=== PATIENT | male | born 1960 | race Caucasian/White ===

== ENCOUNTER 2016-09-28 22:04 | Emergency (ER) | payer OTHER ==
[~2016-09-28] VITALS: Ht 177.8 cm; Wt 52.0 kg
[~2016-09-28 22:04] MED LIST: ALBU8I INH; PRED5PAK PO
[2016-09-28 22:14] VITALS: BP 131/86; PULSE 99; RESP 21; TEMP 98; O2SAT 94
[2016-09-28] MEDS ORDERED: SODIUM CHLORIDE 0.9% FLUSH 10 ML FLUSH IVF PRN (22:15)
[2016-09-28] MEDS ORDERED: ALBUTEROL SULFATE 90 MCG/ACT HFA 8 GM INHALER INH ONE (22:15)
--- NOTE | 2016-09-28 22:19 | PD ---
HPI Chief Complaint: shortness of breath Time Seen by Provider: 22:13 Travel History International Travel<30 days: No Contact w/Intl Traveler<30days: No History of Present Illness HPI Patient is a 55-year-old male presents emergency Department with shortness of breath for the past day. Patient states that he was out walking and got significant short of breath today and so called 911. He received Solu-Medrol by IV and 2 breathing treatments in route. EMS reported that his initial saturation in the field was 90% on room air. He improved to 98 percent after the treatments. Patient states he is feeling a lot better but still feels very wheezy. He denies any chest pain denies any chest tightness. Denies any cough congestion fevers abdominal pain. States he has a history of COPD. PFSH Past Medical History Arthritis: Yes Asthma: No Autoimmune Disease: No Blood Disorders: No Anxiety: No Depression: Yes Cancer: No Cardiovascular Problems: No High Cholesterol: No Chest Pain: No COPD: Yes Diabetes: No Diminished Hearing: Yes (PT STATES " [place]") Endocrine: No Gastrointestinal Disorders: No Genitourinary: No Immune Disorder: No Inguinal Hernia: Yes (HX OF BILATERAL HERNIA REPAIR) Implanted Vascular Access Dvce: No Musculoskeletal: Yes Neurologic: Yes Psychiatric: Yes Reproductive: No Respiratory: Yes (COPD) Sleep Apnea: No Thyroid Disease: No Past Surgical History Abdominal Surgery: Yes (BILATERAL INGUINAL HERNIA REPAIR) Ear Surgery: Yes (STATES X4) Eye Surgery: Yes (STATES X2) Other Surgery: Yes (RIGHT TIBIA FRACTURE) Social History Alcohol Use: Yes (PT ADMITS TO DRINKING 2-3 BEERS DAILY) Tobacco Use: Yes (1PPD) Substance Use: No Allergies-Medications (Allergen,Severity, Reaction): Coded Allergies: Codeine (Verified Allergy, Mild, NAUSEA, 08/17/15) Reported Meds & Prescriptions Reported Meds & Active Scripts Active Prednisone 20 Mg Tab 60 Mg PO DAILY 5 Days Ventolin Hfa (Albuterol Sulfate) 8 Gm Aero 2 Puff INH Q6 * SHAKE WELL BEFORE USE * Sterapred 12 Day (Prednisone) 5 Mg Kvng 5 Mg PO DIRECTED USE DIRECTED Review of Systems Except as stated in HPI: all other systems reviewed are Neg Physical Exam Narrative GENERAL: Well-developed well-nourished, unkempt, smells of cigarettes. SKIN: Focused skin assessment warm/dry. HEAD: Atraumatic. Normocephalic. EYES: Pupils equal and round. No scleral icterus. No injection or drainage. ENT: No nasal bleeding or discharge. Mucous membranes pink and moist. NECK: Trachea midline. No JVD. CARDIOVASCULAR: Regular rate and rhythm. No murmur appreciated. RESPIRATORY: No accessory muscle use. Speaks in full sentences, end expiratory wheezing. GASTROINTESTINAL: Abdomen soft, non-tender, nondistended. Hepatic and splenic margins not palpable. MUSCULOSKELETAL: No obvious deformities. No clubbing. No cyanosis. No edema. NEUROLOGICAL: Awake and alert. No obvious cranial nerve deficits. Motor grossly within normal limits. Normal speech. PSYCHIATRIC: Appropriate mood and affect; insight and judgment normal. Data Data Last Documented VS Vital Signs Date Time Temp Pulse Resp B/P Pulse Ox O2 Delivery O2 Flow Rate FiO2 09/29/16 02:23 104 20 115/58 94 09/28/16 23:55 Room Air 09/28/16 23:00 2 09/28/16 22:14 98.0 Orders Electrocardiogram (09/28/16 22:13) Basic Metabolic Panel (Bmp) (09/28/16 22:13) Complete Blood Count With Diff (09/28/16 22:13) Ecg Monitoring (09/28/16 22:13) Iv Access Insert/Monitor (09/28/16 22:13) Oximetry (09/28/16 22:13) Oxygen Administration (09/28/16 22:13) Albuterol-Ipratropium Neb (Duoneb Neb) (09/28/16 22:15) Sodium Chloride 0.9% Flush (Ns Flush) (09/28/16 22:15) Albuterol Hfa Inh (Proair Hfa Inh) (09/28/16 22:15) Troponin I (09/28/16 22:13) Albuterol-Ipratropium Neb (Duoneb Neb) (09/28/16 22:40) Chest, Single Ap (09/28/16 ) Albuterol Hfa Inh (Ventolin Hfa Inh) (09/28/16 23:35) Albuterol Neb (Albuterol Neb) (09/29/16 00:30) Labs Laboratory Tests Test 09/28/16 22:20 White Blood Count 10.9 TH/MM3 Red Blood Count 4.78 MIL/MM3 Hemoglobin 15.0 GM/DL Hematocrit 44.4 % Mean Corpuscular Volume 92.9 FL Mean Corpuscular Hemoglobin 31.4 PG Mean Corpuscular Hemoglobin 33.8 % Concent Red Cell Distribution Width 13.4 % Platelet Count 200 TH/MM3 Mean Platelet Volume 8.4 FL Neutrophils (%) (Auto) 52.0 % Lymphocytes (%) (Auto) 32.7 % Monocytes (%) (Auto) 9.5 % Eosinophils (%) (Auto) 4.6 % Basophils (%) (Auto) 1.2 % Neutrophils # (Auto) 5.7 TH/MM3 Lymphocytes # (Auto) 3.6 TH/MM3 Monocytes # (Auto) 1.0 TH/MM3 Eosinophils # (Auto) 0.5 TH/MM3 Basophils # (Auto) 0.1 TH/MM3 CBC Comment DIFF FINAL Differential Comment Sodium Level 136 MEQ/L Potassium Level 3.8 MEQ/L Chloride Level 100 MEQ/L Carbon Dioxide Level 25.8 MEQ/L Anion Gap 10 MEQ/L Blood Urea Nitrogen 15 MG/DL Creatinine 0.89 MG/DL Estimat Glomerular Filtration 89 ML/MIN Rate Random Glucose 86 MG/DL Calcium Level 8.8 MG/DL Troponin I LESS THAN 0.02 NG/ML MDM Medical Decision Making Medical Screen Exam Complete: Yes Emergency Medical Condition: Yes Interpretation(s) EKG shows sinus rhythm at a rate of 99, normal axis and normal R-wave progression. No concerning ST segment changes. Intervals within normal limits. This is a normal EKG. Differential Diagnosis COPD exacerbation, has access patient, hypoxia, pneumonia, ACS unlikely, PE was briefly considered and seems highly unlikely. Narrative Course Patient roomed in the emergency department, initial saturation 96 on 2 L nasal cannula, he was kept on nasal cannula given 3 treatments, his breath sounds cleared and he was feeling better. He requests an additional treatment and albuterol treatments been ordered. Patient is homeless, after history and initial treatment she was taken off oxygen sat 89 on room air, he was sleeping soundly, when awoken his sats rise to 94%. Discussed this phenomenon with him and suggested he could be admitted to the hospital however he would like to be discharged after additional treatment. We'll provide him with an inhaler and a prescription for steroids. He is stable for discharge Last 24 hours Impressions Chest X-Ray 09/28/16 0000 Signed Impressions: Service Date/Time: Wednesday, September 28, 2016 23:01 - CONCLUSION: No acute disease. Hieu Prajapati MD Discussed with her need follow-up with a primary care physician or consistency as he had a clinic. He verbalized understanding and agreement. Diagnosis Primary Impression: COPD with exacerbation Med/Other Pt SpecificInfo: Prescription(s) given Scripts Prednisone 20 Mg Tab60 Mg PO DAILY 5 Days Ref 0 Prov:Ricki Saleh MD 09/29/16 Disposition: 01 DISCHARGE HOME Condition: Stable Ricki Saleh MD Sep 28, 2016 22:19
[2016-09-28 22:36] LABS: AUTOMATED NEUTROPHIL # 5.7 TH/MM3 (1.8-7.7); BASOPHIL # 0.1 TH/MM3 (0-0.2); BASOPHIL % 1.2 % (0.0-2.0); EOSINOPHIL # 0.5 TH/MM3 (0-0.4); EOSINOPHIL % 4.6 % (0.0-4.0); HEMATOCRIT 44.4 % (39.0-51.0); HEMO FLAGS DIFF FINAL; LYMPH % 32.7 % (9.0-44.0); LYMPHOCYTE # 3.6 TH/MM3 (1.0-4.8); MEAN CELL VOLUME 92.9 FL (80.0-100.0); MEAN CORPUSCULAR HEMOGLOBIN 31.4 PG (27.0-34.0); MEAN CORPUSCULAR HGB CONC 33.8 % (32.0-36.0); MONO % 9.5 % (0.0-8.0); PLATELET COUNT 200 TH/MM3 (150-450); RED BLOOD COUNT 4.78 MIL/MM3 (4.50-5.90); RED CELL DISTRIBUTION WIDTH 13.4 % (11.6-17.2); WHITE BLOOD COUNT 10.9 TH/MM3 (4.0-11.0)
[2016-09-28] MEDS ORDERED: RESP: ALBUTEROL 2.5 MG/IPRATROPIUM 0.5 MG NEB (PRN) ONE (22:40)
[2016-09-28] MEDS: RESP: ALBUTEROL 2.5 MG/IPRATROPIUM 0.5 MG NEB (SCH) INH ×3 (22:43→23:10)
[2016-09-28 23:01] LABS: ANION GAP 10 MEQ/L (5-15); BICARBONATE 25.8 MEQ/L (21.0-32.0); BLOOD UREA NITROGEN 15 MG/DL (7-18); CHLORIDE 100 MEQ/L (98-107); GLOMERULAR FILTRATION RATE 89 ML/MIN (>89); POTASSIUM 3.8 MEQ/L (3.5-5.1); SODIUM (NA) 136 MEQ/L (136-145)
--- NOTE | 2016-09-28 23:12 | RADRPT ---
EXAM DATE/TIME: 09/28/2016 23:01 [facility] COMPARISON: CHEST SINGLE AP, August 17, 2015, 21:45. INDICATIONS : Shortness of breath. MEDICAL HISTORY : Hypertension. Chronic obstructive pulmonary disease. SURGICAL HISTORY : None. ENCOUNTER: Initial ACUITY: 1 day PAIN SCORE: 4/10 LOCATION: Bilateral chest FINDINGS: Hyperinflation. Nonacute left seventh posterior rib fracture. No consolidation or effusion heart size normal., CONCLUSION: No acute disease. Hieu Prajapati MD on September 28, 2016 at 23:10 Board Certified Radiologist. This report was verified electronically.
[2016-09-28] MEDS ORDERED: ALBUTEROL SULFATE 90 MCG/ACT HFA 18 GM INHALER INH ONE (23:35)
[2016-09-29] MEDS ORDERED: RESP: ALBUTEROL 2.5 MG/3 ML NEB (SCH) NEB ONE (00:30)
[2016-09-29] MEDS ORDERED: PRED20 PO (00:50)
[2016-09-29 02:23] VITALS: BP 115/58
--- NOTE | 2016-09-29 08:22 | EKG ---
Date Performed: 09/28/2016 Time Performed: 22:23:47 PTAGE: 55 years EKG: Sinus rhythm WITH SINUS ARRHYTHMIA ANTEROSEPTAL MYOCARDIAL INFARCTION ABNORMAL ECG PREVIOUS TRACING : 08/17/2015 21.41 DOCTOR: Minesh Carter Interpretating Date/Time 09/29/2016 08:21:25
== END 2016-09-29 02:49 | disposition home or self-care (01) ==
LOC: NEPD 22:04
DX: J44.1 Chronic obstructive pulmonary disease with (acute) exacerbation (principal); F17.290 Nicotine dependence, other tobacco product, uncomplicated
CPT/HCPCS: 71010; 80048; 84484; 85025; 93005; 94640; 94664; 99285; J7613

== ENCOUNTER 2017-01-24 20:48 | Emergency (ER) | payer OTHER ==
[~2017-01-24] VITALS: Ht 177.8 cm; Wt 50.0 kg
[~2017-01-24 20:48] MED LIST changes: +PRED20 PO
[2017-01-24 20:54] VITALS: BP 131/91; PULSE 107; RESP 24; TEMP 98.3; O2SAT 100
[2017-01-24] MEDS ORDERED: SODIUM CHLORIDE 0.9% FLUSH 10 ML FLUSH IVF PRN (21:00)
[2017-01-24 21:01] VITALS: O2SAT 100
[2017-01-24] MEDS: RESP: ALBUTEROL 2.5 MG/IPRATROPIUM 0.5 MG NEB (SCH) INH (21:05)
--- NOTE | 2017-01-24 21:25 | RADRPT ---
EXAM DATE/TIME: 01/24/2017 21:10 [facility] COMPARISON: CHEST SINGLE AP, September 28, 2016, 23:01. INDICATIONS : Shortness of breath. MEDICAL HISTORY : Hypertension. Chronic obstructive pulmonary disease. SURGICAL HISTORY : None. ENCOUNTER: Initial ACUITY: 1 day PAIN SCORE: 0/10 LOCATION: Bilateral chest FINDINGS: The heart is stable. The pulmonary vascular pattern is normal. The lungs are clear. An old fracture i nvolving the left seventh rib is again noted. CONCLUSION: No acute cardiopulmonary disease. Ricki Claudio MD on January 24, 2017 at 21:22 Board Certified Radiologist. This report was verified electronically.
[2017-01-24 21:34] LABS: BLOOD GAS BASE EXCESS -0.6 mmol/L (-2-2); BLOOD GAS CARBOXYHEMOGLOBIN 3.2 % (0-4); BLOOD GAS HCO3 24 mmol/L (22-26); BLOOD GAS METHEMOGLOBIN 0.6 % (0-2); BLOOD GAS O2 HGB SATURATION 96 % (90-100); BLOOD GAS OXYGEN CONTENT 19.6 Vol % (12.0-20.0); BLOOD GAS PCO2 47 mmHg (38-42); BLOOD GAS PO2 184 mmHG (61-120); BLOOD GAS TOTAL HGB 14.3 G/DL (12.0-16.0); CRITICAL VALUE NO; LITER FLOW 8 L/M; OXYGEN DEVICE NEB TX
[2017-01-24 21:35] LABS: DRAW SITE RT RADIAL; NUMBER OF ARTERIAL PUNCTURES 1; STAT YES; ULNAR PULSE PRESENT
--- NOTE | 2017-01-24 21:45 | PD ---
HPI Chief Complaint: Respiratory Symptoms Time Seen by Provider: 20:56 Travel History International Travel<30 days: No Contact w/Intl Traveler<30days: No Traveled to known affect area: No History of Present Illness HPI 56-year-old male with history of COPD brought in by ambulance for evaluation of shortness of breath and wheezing. Symptoms started about an hour ago while walking outside. Patient's O2 saturation was in the 80s and he had diffuse wheezing bilaterally. He was given 3 albuterol nebs as well as IV Solu-Medrol by EMS prior to arrival. Upon arrival to the emergency department the patient is still wheezing, or recent he feels improved. He states he has been having a cough productive of yellowish sputum over the last couple of days. No hemoptysis. No fevers or chills. No chest pain. No history of DVT or PE. PFSH Past Medical History Arthritis: Yes Asthma: No Autoimmune Disease: No Blood Disorders: No Anxiety: No Depression: Yes Cancer: No Cardiovascular Problems: No High Cholesterol: No Chest Pain: No COPD: Yes Diabetes: No Diminished Hearing: Yes (PT STATES " [place]") Endocrine: No Gastrointestinal Disorders: No Genitourinary: No Immune Disorder: No Inguinal Hernia: Yes (HX OF BILATERAL HERNIA REPAIR) Implanted Vascular Access Dvce: No Musculoskeletal: Yes Neurologic: Yes Psychiatric: Yes Reproductive: No Respiratory: Yes (COPD) Sleep Apnea: No Thyroid Disease: No Past Surgical History Abdominal Surgery: Yes (Hernia repair ) Ear Surgery: Yes (STATES X4) Eye Surgery: Yes (Fixed cross eye ) Tympanostomy Tube: Yes Other Surgery: Yes (RIGHT TIBIA FRACTURE) Social History Alcohol Use: Yes (DAILY) Tobacco Use: Yes (1 PPD) Substance Use: No Allergies-Medications (Allergen,Severity, Reaction): Coded Allergies: codeine (Unverified Allergy, Mild, NAUSEA, 01/24/17) Reported Meds & Prescriptions Reported Meds & Active Scripts Active Prednisone 20 Mg Tab 60 Mg PO DAILY 5 Days Ventolin Hfa (Albuterol Sulfate) 8 Gm Aero 2 Puff INH Q6 * SHAKE WELL BEFORE USE * Sterapred 12 Day (Prednisone) 5 Mg Kvng 5 Mg PO DIRECTED USE DIRECTED Review of Systems Except as stated in HPI: all other systems reviewed are Neg Physical Exam Narrative GENERAL: Well-developed, thin, awake, alert, no apparent distress. SKIN: Focused skin assessment warm/dry. HEAD: Atraumatic. Normocephalic. EYES: Pupils equal and round. No scleral icterus. No injection or drainage. ENT: Mucous membranes pink and moist. NECK: Trachea midline. No JVD. CARDIOVASCULAR: Regular rate and rhythm. No murmur appreciated. RESPIRATORY: No accessory muscle use. Inspiratory and expiratory wheezes bilaterally. Equal breath sounds bilaterally. No rales or rhonchi. Speaking full sentences. GASTROINTESTINAL: Abdomen soft, non-tender, nondistended. MUSCULOSKELETAL: No obvious deformities. No clubbing. No cyanosis. No edema. NEUROLOGICAL: Awake and alert. No obvious cranial nerve deficits. Motor grossly within normal limits. Normal speech. PSYCHIATRIC: Appropriate mood and affect; insight and judgment normal. Data Data Last Documented VS Vital Signs Date Time Temp Pulse Resp B/P (MAP) Pulse Ox O2 Delivery O2 Flow Rate FiO2 01/24/17 21:01 100 Aerosol Mask 8.00 01/24/17 20:58 107 24 01/24/17 20:54 98.3 131/91 (104) Orders Orders Complete Blood Count With Diff (01/24/17 20:57) Basic Metabolic Panel (Bmp) (01/24/17 20:57) B-Type Natriuretic Peptide (01/24/17 20:57) Act Partial Throm Time (Ptt) (01/24/17 20:57) Prothrombin Time / Inr (Pt) (01/24/17 20:57) Ckmb (Isoenzyme) Profile (01/24/17 20:57) Troponin I (01/24/17 20:57) Arterial Blood Gas (Abg) (01/24/17 20:57) Influenzae A/B Antigen (01/24/17 20:57) Iv Access Insert/Monitor (01/24/17 20:57) Electrocardiogram (01/24/17 20:57) Ecg Monitoring (01/24/17 20:57) Oximetry (01/24/17 20:57) Oxygen Administration (01/24/17 20:57) Chest, Single Ap (01/24/17 20:57) Sodium Chloride 0.9% Flush (Ns Flush) (01/24/17 21:00) Albuterol-Ipratropium Neb (Duoneb Neb) (01/24/17 21:00) Albuterol Hfa Inh (Proair Hfa Inh) (01/24/17 22:45) Labs Laboratory Tests Test 01/24/17 21:00 01/24/17 21:20 Blood Gas Puncture Site RT RADIAL Blood Gas Patient Temperature 37.0 Blood Gas HCO3 24 mmol/L Blood Gas Base Excess -0.6 mmol/L Blood Gas Oxygen Saturation 96 % Arterial Blood pH 7.34 Arterial Blood Partial Pressure CO2 47 mmHg Arterial Blood Partial Pressure O2 184 mmHG Arterial Blood Oxygen Content 19.6 Vol % Arterial Blood Carboxyhemoglobin 3.2 % Arterial Blood Methemoglobin 0.6 % Blood Gas Hemoglobin 14.3 G/DL Oxygen Delivery Device NEB TX Blood Gas Liter Flow 8 L/M White Blood Count 8.4 TH/MM3 Red Blood Count 4.57 MIL/MM3 Hemoglobin 14.6 GM/DL Hematocrit 42.7 % Mean Corpuscular Volume 93.3 FL Mean Corpuscular Hemoglobin 31.9 PG Mean Corpuscular Hemoglobin Concent 34.2 % Red Cell Distribution Width 12.9 % Platelet Count 202 TH/MM3 Mean Platelet Volume 8.9 FL Neutrophils (%) (Auto) 39.7 % Lymphocytes (%) (Auto) 44.6 % Monocytes (%) (Auto) 7.9 % Eosinophils (%) (Auto) 6.1 % Basophils (%) (Auto) 1.7 % Neutrophils # (Auto) 3.3 TH/MM3 Lymphocytes # (Auto) 3.7 TH/MM3 Monocytes # (Auto) 0.7 TH/MM3 Eosinophils # (Auto) 0.5 TH/MM3 Basophils # (Auto) 0.1 TH/MM3 CBC Comment DIFF FINAL Differential Comment Prothrombin Time 10.5 SEC Prothromb Time International Ratio 1.0 RATIO Activated Partial Thromboplast Time 27.6 SEC Blood Urea Nitrogen 15 MG/DL Creatinine 1.09 MG/DL Random Glucose 72 MG/DL Calcium Level 8.0 MG/DL Sodium Level 142 MEQ/L Potassium Level 3.9 MEQ/L Chloride Level 105 MEQ/L Carbon Dioxide Level 27.6 MEQ/L Anion Gap 9 MEQ/L Estimat Glomerular Filtration Rate 70 ML/MIN Total Creatine Kinase 78 U/L Troponin I LESS THAN 0.02 NG/ML B-Type Natriuretic Peptide 13 PG/ML MDM Medical Decision Making Medical Screen Exam Complete: Yes Emergency Medical Condition: Yes Differential Diagnosis COPD exacerbation, pneumonia, bronchitis, pneumothorax Narrative Course Vital signs reviewed. CBC is unremarkable. BMP is unremarkable. Cardiac enzymes are negative. BNP is 13. Influenza is negative. ABG on 8 L aerosol treatment: PH 7.33, PCO2 46.7, PO2 184. Chest x-ray shows no acute disease. Patient had already been given 3 albuterol nebs by EMS as well as Solu-Medrol prior to arrival. Patient was given 3 DuoNeb treatments here in the emergency department. On reassessment 2 hours after presenting to the emergency department the patient is sleeping comfortably. He is no longer in respiratory distress. Lung sounds are clear and equal bilaterally. He is stable for discharge home with outpatient follow-up. I will give him the information to the [place] clinic with whom to follow-up with this week. He was informed on when to return to the emergency department. He verbalizes understanding and agreement with plan. Diagnosis Primary Impression: COPD with exacerbation Referrals: [facility] 3 days Additional Instructions: Follow-up with a primary care physician this week. Take medications as prescribed. Return to the emergency department for worsening symptoms or any other concerns. Scripts Albuterol 18 GM Inh (Ventolin Hfa 18 GM Inh) 90 Mcg/Act Aer 2 PUFF INH Q4-6H Y for SHORTNESS OF BREATH, #1 INHALER 0 Refills Prov: Domenic Caldwell MD 01/24/17 Prednisone (Prednisone) 50 Mg Tab 50 MG PO DAILY for 5 Days, #5 TAB 0 Refills Prov: Domenic Caldwell MD 01/24/17 Disposition: 01 DISCHARGE HOME Condition: Stable Domenic Caldwell MD Jan 24, 2017 21:45
[2017-01-24 21:58] LABS: AUTOMATED NEUTROPHIL # 3.3 TH/MM3 (1.8-7.7); BASOPHIL # 0.1 TH/MM3 (0-0.2); BASOPHIL % 1.7 % (0.0-2.0); EOSINOPHIL # 0.5 TH/MM3 (0-0.4); EOSINOPHIL % 6.1 % (0.0-4.0); HEMATOCRIT 42.7 % (39.0-51.0); HEMO FLAGS DIFF FINAL; LYMPH % 44.6 % (9.0-44.0); LYMPHOCYTE # 3.7 TH/MM3 (1.0-4.8); MEAN CELL VOLUME 93.3 FL (80.0-100.0); MEAN CORPUSCULAR HEMOGLOBIN 31.9 PG (27.0-34.0); MEAN CORPUSCULAR HGB CONC 34.2 % (32.0-36.0); MONO % 7.9 % (0.0-8.0); NEUT % 39.7 % (16.0-70.0); PLATELET COUNT 202 TH/MM3 (150-450); RED BLOOD COUNT 4.57 MIL/MM3 (4.50-5.90); RED CELL DISTRIBUTION WIDTH 12.9 % (11.6-17.2); WHITE BLOOD COUNT 8.4 TH/MM3 (4.0-11.0)
[2017-01-24 22:02] LABS: APTT (PATIENT) 27.6 SEC (24.3-30.1); PROTHROMBIN TIME - PATIENT 10.5 SEC (9.8-11.6)
[2017-01-24 22:13] LABS: ANION GAP 9 MEQ/L (5-15); BICARBONATE 27.6 MEQ/L (21.0-32.0); BLOOD UREA NITROGEN 15 MG/DL (7-18); CHLORIDE 105 MEQ/L (98-107); GLOMERULAR FILTRATION RATE 70 ML/MIN (>89); POTASSIUM 3.9 MEQ/L (3.5-5.1); SODIUM (NA) 142 MEQ/L (136-145)
[2017-01-24 22:24] LABS: CREATINE KINASE 78 U/L (39-308)
[2017-01-24] MEDS ORDERED: ALBUTEROL SULFATE 90 MCG/ACT HFA 8 GM INHALER INH ONE (22:45)
[2017-01-24] MEDS ORDERED: PRED50 PO (22:50)
[2017-01-24] MEDS ORDERED: VENTAER INH (22:50)
[2017-01-24 22:59] VITALS: BP 106/55; PULSE 111; RESP 18; O2SAT 89
--- NOTE | 2017-01-25 16:58 | EKG ---
Date Performed: 01/24/2017 Time Performed: 21:03:37 PTAGE: 56 years EKG: Sinus rhythm ANTEROSEPTAL MYOCARDIAL INFARCTION When compared to previous tracing, the patient may have Developed some ST elevation laterally. Difficult to be sure with the artifact in the tracing. Can not exclude extension of a previous anteroseptal infarct on The basis of a possible serial changes. ABNORMAL ECG PREVIOUS TRACING : 09/28/2016 22.23 DOCTOR: Joselin Perez Interpretating Date/Time 01/25/2017 16:57:23
== END 2017-01-24 23:14 | disposition home or self-care (01) ==
LOC: NEPE 20:48
DX: J44.1 Chronic obstructive pulmonary disease with (acute) exacerbation (principal); I25.2 Old myocardial infarction; R94.31 Abnormal electrocardiogram [ECG] [EKG]; M19.90 Unspecified osteoarthritis, unspecified site; F32.9 Major depressive disorder, single episode, unspecified; F17.200 Nicotine dependence, unspecified, uncomplicated; Z79.899 Other long term (current) drug therapy; Z88.5 Allergy status to narcotic agent
CPT/HCPCS: 36600; 71010; 80048; 82550; 82805; 83880; 84484; 85025; 85610; 85730; 87804; 93005; 94640; 94664; 99285

== ENCOUNTER 2017-07-05 19:45 | Observation (INO) | payer SELFPAY ==
[2017-07-05] VITALS (9 sets, daily range): BP systolic 99–129; BP diastolic 61–76; PULSE 89–105; RESP 18–24; TEMP 97.9; O2SAT 89–95
[~2017-07-05] VITALS: Ht 177.8 cm; Wt 55.0 kg
[~2017-07-05 19:45] MED LIST changes: +PRED50 PO; +VENTAER INH
--- NOTE | 2017-07-05 20:05 | PD ---
HPI Chief Complaint: SOB Time Seen by Provider: 20:00 Travel History International Travel<30 days: No Contact w/Intl Traveler<30days: No Traveled to known affect area: No History of Present Illness HPI This is a 56-year-old homeless male with history of tobacco use and COPD presents via EMS for evaluation of dyspnea. Symptoms started prior to arrival when he was outside smoking a cigarette. Patient reports dyspnea, wheezing. He typically uses albuterol inhaler when symptoms however [facility] When [facility] and rescue arrived pulse oximetry was in the low 80s on room air and the patient received 125 mg of Solu-Medrol, 1 albuterol nebulizer and when paramedics arrived he was administered 1 DuoNeb treatment. Oxygen saturation improved to the mid 90s. The patient reports that it has been raining and thus he is cold and wet. He reports chronic cough but denies any acute change in his cough. He denies chest pain, nausea or vomiting, fevers , abdominal pain, diarrhea or constipation, lower extremity edema, recent travel recent surgery. No other complaints at this time. PFSH Past Medical History Arthritis: Yes Asthma: No Autoimmune Disease: No Blood Disorders: No Anxiety: No Depression: Yes Cancer: No Cardiovascular Problems: No High Cholesterol: No Chest Pain: No COPD: Yes Diabetes: No Diminished Hearing: Yes (PT STATES " [place]") Endocrine: No Gastrointestinal Disorders: No Genitourinary: No Immune Disorder: No Inguinal Hernia: Yes (HX OF BILATERAL HERNIA REPAIR) Implanted Vascular Access Dvce: No Musculoskeletal: Yes Neurologic: Yes Psychiatric: Yes Reproductive: No Respiratory: Yes (COPD) Sleep Apnea: No Thyroid Disease: No Past Surgical History Abdominal Surgery: Yes (Hernia repair ) Ear Surgery: Yes (STATES X4) Eye Surgery: Yes (Fixed cross eye ) Tympanostomy Tube: Yes Other Surgery: Yes (RIGHT TIBIA FRACTURE) Social History Alcohol Use: Yes (DAILY) Tobacco Use: Yes (1 PPD) Substance Use: No Allergies-Medications (Allergen,Severity, Reaction): Coded Allergies: codeine (Unverified Adverse Reaction, Mild, NAUSEA, 07/05/17) Reported Meds & Prescriptions Reported Meds & Active Scripts Active Reported Proair Hfa 8.5 GM Inh (Albuterol Sulfate) 90 Mcg/Act Aer 1 Puff PO QID PRN Review of Systems Except as stated in HPI: all other systems reviewed are Neg Physical Exam Narrative GENERAL: This is a disheveled male who is in no acute distress. Oxygen saturation is approximately 94% on room air on initial examination. SKIN: Warm and dry. HEAD: Atraumatic. Normocephalic. EYES: Pupils equal and round. No scleral icterus. No injection or drainage. ENT: No nasal bleeding or discharge. Mucous membranes pink and moist. NECK: Trachea midline. No JVD. CARDIOVASCULAR: Regular rate and rhythm. No murmur appreciated. RESPIRATORY: No accessory muscle use. Diffuse wheezing bilaterally. No crackles. GASTROINTESTINAL: Abdomen soft, non-tender, nondistended. Hepatic and splenic margins not palpable. MUSCULOSKELETAL: No obvious deformities. No clubbing. No cyanosis. No edema. NEUROLOGICAL: Awake and alert. No obvious cranial nerve deficits. Motor grossly within normal limits. Normal speech. Data Data Last Documented VS Vital Signs Date Time Temp Pulse Resp B/P (MAP) Pulse Ox O2 Delivery O2 Flow Rate FiO2 07/05/17 21:30 96 20 112/62 (79) 91 Nasal Cannula 2.00 07/05/17 19:54 97.9 Orders Orders Complete Blood Count With Diff (07/05/17 20:01) Basic Metabolic Panel (Bmp) (07/05/17 20:01) B-Type Natriuretic Peptide (07/05/17 20:01) Magnesium (Mg) (07/05/17 20:01) Iv Access Insert/Monitor (07/05/17 20:01) Electrocardiogram (07/05/17 20:01) Ecg Monitoring (07/05/17 20:01) Oximetry (07/05/17 20:01) Chest, Single Ap (07/05/17 20:01) Albuterol-Ipratropium Neb (Duoneb Neb) (07/05/17 20:15) Troponin I (07/05/17 20:01) Creatine Kinase (Cpk) (07/05/17 20:01) Diet Regular Basic (07/06/17 Breakfast) Vital Signs (Adult) BOZENA.Q4H (07/05/17 21:50) Albuterol-Ipratropium Neb (Duoneb Neb) (07/06/17 00:00) Albuterol Neb (Albuterol Neb) (07/05/17 22:00) Resp Oxygen Alireza C Titrat 1-4 L (07/05/17 ) Admit Order (Ed Use Only) (07/05/17 21:52) Labs Laboratory Tests Test 07/05/17 20:00 White Blood Count 10.1 TH/MM3 Red Blood Count 5.06 MIL/MM3 Hemoglobin 15.6 GM/DL Hematocrit 46.6 % Mean Corpuscular Volume 92.0 FL Mean Corpuscular Hemoglobin 30.9 PG Mean Corpuscular Hemoglobin Concent 33.6 % Red Cell Distribution Width 13.9 % Platelet Count 310 TH/MM3 Mean Platelet Volume 8.3 FL Neutrophils (%) (Auto) 50.3 % Lymphocytes (%) (Auto) 37.1 % Monocytes (%) (Auto) 6.4 % Eosinophils (%) (Auto) 4.1 % Basophils (%) (Auto) 2.1 % Neutrophils # (Auto) 5.1 TH/MM3 Lymphocytes # (Auto) 3.8 TH/MM3 Monocytes # (Auto) 0.7 TH/MM3 Eosinophils # (Auto) 0.4 TH/MM3 Basophils # (Auto) 0.2 TH/MM3 CBC Comment DIFF FINAL Differential Comment Blood Urea Nitrogen 12 MG/DL Creatinine 0.87 MG/DL Random Glucose 85 MG/DL Calcium Level 8.8 MG/DL Magnesium Level 2.1 MG/DL Sodium Level 139 MEQ/L Potassium Level 4.0 MEQ/L Chloride Level 101 MEQ/L Carbon Dioxide Level 26.4 MEQ/L Anion Gap 12 MEQ/L Estimat Glomerular Filtration Rate 91 ML/MIN Total Creatine Kinase 80 U/L Troponin I LESS THAN 0.02 NG/ML B-Type Natriuretic Peptide 12 PG/ML MDM Medical Decision Making Medical Screen Exam Complete: Yes Emergency Medical Condition: Yes Medical Record Reviewed: Yes Differential Diagnosis COPD exacerbation, pneumonia, CHF, pulmonary edema, pulmonary embolism, bronchitis Narrative Course The patient was placed on ECG monitoring pulse oximetry. A 12-lead EKG was obtained revealing sinus rhythm with significant artifact, likely because the patient is cold, wet and shivering. He will be changed into dry clothing. Lab work, chest x-ray been ordered. He will be given DuoNeb treatment. He received Solu-Medrol en route. Lab work and imaging studies reassuring. Upon reexamination the patient feels improved with his oxygen saturation is 89% on room air at rest. The patient will be admitted to the [facility]. Diagnosis Primary Impression: COPD with exacerbation Admitting Information Admitting Physician Requests: Dickson Carver July 05, 2017 20:05
[2017-07-05] MEDS ORDERED: RESP: ALBUTEROL 2.5 MG/IPRATROPIUM 0.5 MG NEB (SCH) INH ONE (20:15)
[2017-07-05 20:16] LABS: AUTOMATED NEUTROPHIL # 5.1 TH/MM3 (1.8-7.7); BASOPHIL # 0.2 TH/MM3 (0-0.2); BASOPHIL % 2.1 % (0.0-2.0); EOSINOPHIL # 0.4 TH/MM3 (0-0.4); EOSINOPHIL % 4.1 % (0.0-4.0); HEMATOCRIT 46.6 % (39.0-51.0); HEMOGLOBIN 15.6 GM/DL (13.0-17.0); LYMPH % 37.1 % (9.0-44.0); LYMPHOCYTE # 3.8 TH/MM3 (1.0-4.8); MEAN CORPUSCULAR HEMOGLOBIN 30.9 PG (27.0-34.0); MEAN CORPUSCULAR HGB CONC 33.6 % (32.0-36.0); MEAN PLATELET VOLUME 8.3 FL (7.0-11.0); MONO % 6.4 % (0.0-8.0); MONOCYTE # 0.7 TH/MM3 (0-0.9); NEUT % 50.3 % (16.0-70.0); PLATELET COUNT 310 TH/MM3 (150-450); RED BLOOD COUNT 5.06 MIL/MM3 (4.50-5.90); RED CELL DISTRIBUTION WIDTH 13.9 % (11.6-17.2); WHITE BLOOD COUNT 10.1 TH/MM3 (4.0-11.0)
[2017-07-05] MEDS ORDERED: ALBUAER3 PO (20:16)
[2017-07-05 20:42] LABS: BICARBONATE 26.4 MEQ/L (21.0-32.0); BLOOD UREA NITROGEN 12 MG/DL (7-18); CALCIUM 8.8 MG/DL (8.5-10.1); CHLORIDE 101 MEQ/L (98-107); CREATININE 0.87 MG/DL (0.60-1.30); GLOMERULAR FILTRATION RATE 91 ML/MIN (>89); GLUCOSE,RANDOM 85 MG/DL (74-106); MAGNESIUM 2.1 MG/DL (1.5-2.5); SODIUM (NA) 139 MEQ/L (136-145); TROPONIN I LESS THAN 0.02 NG/ML (0.02-0.05)
--- NOTE | 2017-07-05 20:49 | RADRPT ---
EXAM DATE/TIME: 07/05/2017 20:21 [facility] COMPARISON: CHEST SINGLE AP, January 24, 2017, 21:10. INDICATIONS : Patient is experiencing shortness of breath. MEDICAL HISTORY : Hypertension. Chronic obstructive pulmonary disease SURGICAL HISTORY : None. ENCOUNTER: Initial ACUITY: 1 day PAIN SCORE: 3/10 LOCATION: Bilateral upper chest FINDINGS: A single view of the chest demonstrates the lungs to be symmetrically aerated without evidence of mas s, infiltrate or effusion. The cardiomediastinal contours are unremarkable. Osseous structures are intact. CONCLUSION: No acute disease. Abdirashid Thompson MD on July 05, 2017 at 20:45 Board Certified Radiologist. This report was verified electronically.
[2017-07-05] MEDS ORDERED: RESP: ALBUTEROL 1.25 MG/3 ML NEB (PRN) NEB (22:00)
--- NOTE | 2017-07-05 23:18 | HHI.HP ---
[facility] Service [facility] Primary Care Physician No Primary Care Physician Admission Diagnosis COPD exacerbation Diagnoses: (1) COPD exacerbation Diagnosis: Principal Chief Complaint: shortness of breath Travel History International Travel<30 Days: No Contact w/Intl Traveler <30 Da: No Traveled to Known Affected Are: No History of Present Illness patient is a 56 y/o male with history of COPD who still smokes presented to ER with shortness of breath. he says that his sob started last night and gradually got worse. he';s complaining of cough, productive of yellowish sputum. he denies any fever or chills. he was found to have a pulse-ox of 80's which improved after Solumedrol injection and neb treatments. he was resting comfortably at the time of my evaluation. Review of Systems Constitutional: DENIES: Fever, Weight loss, Chills, Night Sweats Eyes: DENIES: Blurred vision, Diplopia, Vision loss, Double Vision Ears, nose, mouth, throat: DENIES: Tinnitus, Vertigo, Throat pain, Epistaxis Respiratory: COMPLAINS OF: Cough, Sputum production, Shortness of breath, DENIES: Apneas, Snoring, Wheezing, Hemoptysis Cardiovascular: DENIES: Chest pain, Palpitations, Syncope, Dyspnea on Exertion , PND, Lower Extremity Edema, Orthopnea, Claudication Gastrointestinal: DENIES: Abdominal pain, Black stools, Bloody stools, Constipation, Diarrhea, Nausea, Vomiting, Difficulty Swallowing, Anorexia Genitourinary: DENIES: Urinary frequency, Urgency, Hematuria, Dysuria Musculoskeletal: DENIES: Joint pain, Muscle aches, Stiffness, Joint Swelling Integumentary: DENIES: Rash Neurologic: DENIES: Abnormal gait, Headache, Localized weakness, Paresthesias, Seizures, Speech Problems, Tremor, Poor Balance Psychiatric: DENIES: Anxiety, Confusion, Mood changes, Depression, Hallucinations, Agitation, Suicidal Ideation, Homicidal Ideation, Delusions Past Family Social History Past Medical History COPD Past Surgical History hernia repair. Reported Medications none. Allergies: Coded Allergies: codeine (Unverified Adverse Reaction, Mild, NAUSEA, 5/15/18) Active Ordered Medications Inpatient Medications Albuterol Sulfate (Albuterol Neb) 1.25 mg Q2HR NEB PRN NEB SHORTNESS OF BREATH ; Start 07/05/17 at 22:00 Albuterol/ Ipratropium (Duoneb Neb) 1 ampule Q4HR NEB NEB ; Start 07/06/17 at 00:00 Social History smokes upto pack a day- drinks two or three times weekly. Physical Exam Vital Signs Vital Signs Date Time Temp Pulse Resp B/P (MAP) Pulse Ox O2 Delivery O2 Flow Rate FiO2 07/05/17 22:40 78 18 102/76 (85) 100 Nasal Cannula 2.00 07/05/17 22:00 89 18 99/61 (74) 94 Nasal Cannula 2.00 07/05/17 21:30 96 20 112/62 (79) 91 Nasal Cannula 2.00 07/05/17 21:00 100 20 111/64 (80) 89 Room Air 07/05/17 20:30 102 20 111/61 (78) 95 Aerosol Mask 07/05/17 20:23 95 Nasal Cannula 3.00 07/05/17 20:06 105 22 122/69 (86) 94 Room Air 07/05/17 19:54 97.9 104 24 129/74 (92) 95 Physical Exam GENERAL: This is a well-nourished, well-developed patient, in no apparent distress. SKIN: No rashes, ecchymoses or lesions. Cool and dry. HEAD: Atraumatic. Normocephalic. No temporal or scalp tenderness. EYES: Pupils equal round and reactive. Extraocular motions intact. No scleral icterus. No injection or drainage. ENT: Nose without bleeding, purulent drainage or septal hematoma. Throat without erythema, tonsillar hypertrophy or exudate. Uvula midline. Airway patent. NECK: Trachea midline. No JVD or lymphadenopathy. Supple, nontender, no meningeal signs. CARDIOVASCULAR: Regular rate and rhythm without murmurs, gallops, or rubs. RESPIRATORY: Clear to auscultation. Breath sounds equal bilaterally. No wheezes , rales, or rhonchi. GASTROINTESTINAL: Abdomen soft, non-tender, nondistended. No hepato-splenomegaly , or palpable masses. No guarding. MUSCULOSKELETAL: Extremities without clubbing, cyanosis, or edema. No joint tenderness, effusion, or edema noted. No calf tenderness. Negative Homans sign bilaterally. NEUROLOGICAL: Awake and alert. Cranial nerves II through XII intact. Motor and sensory grossly within normal limits. Five out of 5 muscle strength in all muscle groups. Normal speech. Laboratory Laboratory Tests Test 07/05/17 20:00 White Blood Count 10.1 Red Blood Count 5.06 Hemoglobin 15.6 Hematocrit 46.6 Mean Corpuscular Volume 92.0 Mean Corpuscular Hemoglobin 30.9 Mean Corpuscular Hemoglobin Concent 33.6 Red Cell Distribution Width 13.9 Platelet Count 310 Mean Platelet Volume 8.3 Neutrophils (%) (Auto) 50.3 Lymphocytes (%) (Auto) 37.1 Monocytes (%) (Auto) 6.4 Eosinophils (%) (Auto) 4.1 Basophils (%) (Auto) 2.1 Neutrophils # (Auto) 5.1 Lymphocytes # (Auto) 3.8 Monocytes # (Auto) 0.7 Eosinophils # (Auto) 0.4 Basophils # (Auto) 0.2 CBC Comment DIFF FINAL Differential Comment Blood Urea Nitrogen 12 Creatinine 0.87 Random Glucose 85 Calcium Level 8.8 Magnesium Level 2.1 Sodium Level 139 Potassium Level 4.0 Chloride Level 101 Carbon Dioxide Level 26.4 Anion Gap 12 Estimat Glomerular Filtration Rate 91 Total Creatine Kinase 80 Troponin I LESS THAN 0.02 B-Type Natriuretic Peptide 12 Result Diagram: 07/05/17199907/05/171999 Imaging Last Impressions Chest X-Ray 07/05/172000 Signed Impressions: Service Date/Time: Wednesday, July 05, 2017 20:21 - CONCLUSION: No acute disease. Abdirashid Thompson MD EKG; sinus rhythm with no acute ST-T changes. Caprini VTE Risk Assessment Caprini VTE Risk Assessment: Mod/High Risk (score >= 2) Caprini Risk Assessment Model Point Value = 1 Point Value = 2 Point Value = 3 Point Value = 5 Age 41-60 Minor surgery BMI > 25 kg/m2 Swollen legs Varicose veins or History of unexplained or recurrent spontaneous Oral contraceptives or hormone replacement Sepsis (< 1 month) Serious lung disease, including pneumonia (< 1 month) Abnormal pulmonary function Acute myocardial infarction Congestive heart failure (< 1 month) History of inflammatory bowel disease Medical patient at bed rest Age 61-74 Arthroscopic surgery Major open surgery (> 45 min) Laparoscopic surgery (> 45 min) Malignancy Confined to bed (> 72 hours) Immobilizing plaster cast Central venous access Age >= 75 History of VTE Family history of VTE Factor V Leiden Prothrombin [id number] Lupus anticoagulant Anticardiolipin antibodies Elevated serum homocysteine Heparin-induced thrombocytopenia Other congenital or acquired thrombophilia Stroke (< 1 month) Elective arthroplasty Hip, pelvis, or leg fracture Acute spinal cord injury (< 1 month) Prophylaxis Regimen Total Risk Factor Score Risk Level Prophylaxis Regimen 0-1 Low Early ambulation 2 Moderate Order ONE of the following: *Sequential Compression Device (SCD) *Heparin 5000 units SQ BID 3-4 Higher Order ONE of the following medications: *Heparin 5000 units SQ TID *Enoxaparin/Lovenox 40 mg SQ daily (WT < 150 kg, CrCl > 30 mL/min) *Enoxaparin/Lovenox 30 mg SQ daily (WT < 150 kg, CrCl > 10-29 mL/min) *Enoxaparin/Lovenox 30 mg SQ BID (WT < 150 kg, CrCl > 30 mL/min) AND/OR *Sequential Compression Device (SCD) 5 or more Highest Order ONE of the following medications: *Heparin 5000 units SQ TID (Preferred with Epidurals) *Enoxaparin/Lovenox 40 mg SQ daily (WT < 150 kg, CrCl > 30 mL/min) *Enoxaparin/Lovenox 30 mg SQ daily (WT < 150 kg, CrCl > 10-29 mL/min) *Enoxaparin/Lovenox 30 mg SQ BID (WT < 150 kg, CrCl > 30 mL/min) AND *Sequential Compression Device (SCD) Assessment and Plan Assessment and Plan A/P - acute hypoxemic respiratory failure due to COPD exacerbation start on IV Solumedrol- neb treatment and antibiotics- keep on oxygen as needed to keep O2 sat > 90%. counselled on smoking cessation. -DVT prophylaxis with subq Lovenox. Discussed Condition With ER physician and the patient. Anabell Finn MD July 05, 2017 23:18
[2017-07-05] MEDS: methylPREDNISolone SOD SUCC 40 MG/1 ML VIAL IV PUSH SCH (23:37)
[2017-07-06] MEDS ORDERED: LEVOFLOXACIN 500 MG PREMIX INJ 100 ML IV SCH
[2017-07-06] MEDS: RESP: ALBUTEROL 2.5 MG/IPRATROPIUM 0.5 MG NEB (SCH) NEB ×4 (00:09→11:48)
[2017-07-06 00:12] VITALS: O2SAT 95
[2017-07-06 04:09] VITALS: BP 106/55; PULSE 89; RESP 18; TEMP 98.7; O2SAT 98
[2017-07-06] MEDS: methylPREDNISolone SOD SUCC 40 MG/1 ML VIAL IV PUSH SCH (05:40)
[2017-07-06 07:16] VITALS: BP 122/68; PULSE 95; RESP 18; TEMP 97.4; O2SAT 92
[2017-07-06 07:38] VITALS: O2SAT 91
[2017-07-06] MEDS ORDERED: ENOXAPARIN SODIUM 40 MG/0.4 ML SYRINGE SQ SCH (09:00)
[2017-07-06] MEDS ORDERED: ALBUAER3 PO (11:39)
[2017-07-06] MEDS ORDERED: PRED20 PO (11:39)
[2017-07-06] MEDS ORDERED: LEVA500T33 PO (11:39)
--- NOTE | 2017-07-06 11:42 | HHI.DS ---
Discharge Summary Admission Date July 05, 2017 at 21:53 Discharge Date: July 06, 2017 Admitting Diagnosis COPD exacerbation (1) COPD exacerbation ICD Code: J44.1 - Obstructive chronic bronchitis with exacerbation Diagnosis: Principal Status: Resolved Procedures None Brief History - From Admission patient is a 56 y/o male with history of COPD who still smokes presented to ER with shortness of breath. he says that his sob started last night and gradually got worse. he';s complaining of cough, productive of yellowish sputum. he denies any fever or chills. he was found to have a pulse-ox of 80's which improved after Solumedrol injection and neb treatments. he was resting comfortably at the time of my evaluation. CBC/BMP: 07/05/17199907/05/171999 Significant Findings Laboratory Tests Test 07/05/17 20:00 Eosinophils (%) (Auto) 4.1 % (0.0-4.0) Basophils (%) (Auto) 2.1 % (0.0-2.0) Troponin I LESS THAN 0.02 NG/ML Hospital Course Mr. Burris is a 56-year-old male. He was admitted secondary to COPD exacerbation. Hypoxia down to 89% on room air was present at time of admit. Patient's primary complaints were cough and shortness of breath. Overnight he received Levaquin and steroids and he has been improving through this morning. He is now saturating in the mid 90s on room air. He says that his wheezing has resolved. He says that his cough is improving. He is not fully back to baseline but he is saturating well on room air resting and with ambulation. At this point he is medically clear and stable for discharge to home. He will discharge home with systemic steroids and antibiotics to cover for bronchitis. Pt Condition on Discharge: Stable Discharge Disposition: Discharge Home Discharge Time: <= 30 minutes Discharge Instructions DIET: Follow Instructions for: As Tolerated, No Restrictions Activities you can perform: Regular-No Restrictions Follow up Referrals: PCP Follow-up - 2 Weeks New Medications: Levofloxacin (Levaquin) 500 Mg Tablet 500 MG PO DAILY for Infection, #6 TAB 0 Refills Prednisone (Prednisone) 20 Mg Tab 20 MG PO BID for Inflammation, #6 TAB 0 Refills Continued Medications: Albuterol 8.5 GM Inh (Proair Hfa 8.5 GM Inh) 90 Mcg/Act Aer 1 PUFF PO QID PRN for WHEEZING, #1 INHALER (This prescription has been renewed) Ezio Cullen MD July 06, 2017 11:42
[2017-07-06 12:00] VITALS: BP 118/59; PULSE 105; RESP 18; TEMP 98.1; O2SAT 90
--- NOTE | 2017-07-06 22:27 | EKG ---
Date Performed: 07/05/2017 Time Performed: 19:56:50 PTAGE: 56 years EKG: SINUS TACHYCARDIA POSSIBLE LEFT ATRIAL ENLARGEMENT POSSIBLE RIGHT VENTRICULAR CONDUCTION DE LAY ANTEROSEPTAL MYOCARDIAL INFARCTION ABNORMAL ECG NO PREVIOUS TRACING DOCTOR: Beka Whitmore Interpretating Date/Time 07/06/2017 22:26:14
== END 2017-07-06 12:46 | disposition home or self-care (01) ==
LOC: NEPE 19:45 → NEDA 21:53 → NEPHCDU 22:43
PROVIDERS: ADMIT Hospitalist; ATTEND Hospitalist
DX: J44.1 Chronic obstructive pulmonary disease with (acute) exacerbation (principal); J96.01 Acute respiratory failure with hypoxia; I10 Essential (primary) hypertension; R00.0 Tachycardia, unspecified; R94.31 Abnormal electrocardiogram [ECG] [EKG]; F32.9 Major depressive disorder, single episode, unspecified; H91.90 Unspecified hearing loss, unspecified ear; M19.90 Unspecified osteoarthritis, unspecified site; F17.210 Nicotine dependence, cigarettes, uncomplicated; Z59.0 Homelessness
CPT/HCPCS: 71045; 80048; 82550; 83735; 83880; 84484; 85025; 93005; 94618; 94640; 94664; 96365; 96375; 96376; 99285; G0378; J1956; J2920

== ENCOUNTER 2017-07-19 20:42 | Inpatient (IN) | payer SELFPAY ==
[~2017-07-19] VITALS: Ht 177.8 cm; Wt 70.0 kg
[~2017-07-19 20:42] MED LIST changes: -ALBU8I INH; +ALBUAER3 PO; +LEVA500T33 PO; -PRED50 PO; -PRED5PAK PO; -VENTAER INH
[2017-07-19 21:04] VITALS: BP 122/78; PULSE 106; RESP 16; O2SAT 94
[2017-07-19] MEDS ORDERED: SODIUM CHLORIDE 0.9% FLUSH 10 ML FLUSH IVF PRN (21:15)
[2017-07-19 21:20] VITALS: O2SAT 93
[2017-07-19] MEDS: RESP: ALBUTEROL 2.5 MG/IPRATROPIUM 0.5 MG NEB (SCH) INH (21:20)
[2017-07-19] MEDS ORDERED: ALBUTEROL SULFATE 90 MCG/ACT HFA 8 GM INHALER INH ONE (21:30)
--- NOTE | 2017-07-19 21:49 | RADRPT ---
EXAM DATE: 07/19/2017 9:42 PM EDT AGE/SEX: 56 years / Male INDICATIONS: Short of breath. CLINICAL DATA: This is the patient's initial encounter. Patient reports that signs and symptoms have been present for 1 day and indicates a pain score of 0/10. MEDICAL/SURGICAL HISTORY: None. None. [place] [facility] [place]. . FINDINGS: A single AP view of the chest demonstrates the lungs to be symmetrically aerated without evidence of mass, infiltrate or effusion. There is hyperaeration bilaterally. The cardiomediastinal contours are unremarkable. Osseous structures are intact. No significant changes compared to the prior study. CONCLUSION: 1. No focal or acute intrathoracic disease. 2. Bilateral hyperaeration suggestive of COPD. No significant change compared to the prior study. Electronically signed by: Nelson Sexton MD 07/19/2017 9:48 PM EDT
[2017-07-19 21:51] LABS: BASOPHIL # 0.1 TH/MM3 (0-0.2); BASOPHIL % 0.5 % (0.0-2.0); EOSINOPHIL # 0.1 TH/MM3 (0-0.4); EOSINOPHIL % 1.3 % (0.0-4.0); HEMATOCRIT 42.2 % (39.0-51.0); HEMOGLOBIN 14.1 GM/DL (13.0-17.0); LYMPH % 16.2 % (9.0-44.0); LYMPHOCYTE # 1.8 TH/MM3 (1.0-4.8); MEAN CELL VOLUME 91.6 FL (80.0-100.0); MEAN CORPUSCULAR HEMOGLOBIN 30.6 PG (27.0-34.0); MEAN CORPUSCULAR HGB CONC 33.4 % (32.0-36.0); MEAN PLATELET VOLUME 8.8 FL (7.0-11.0); MONO % 9.8 % (0.0-8.0); MONOCYTE # 1.1 TH/MM3 (0-0.9); NEUT % 72.2 % (16.0-70.0); PLATELET COUNT 162 TH/MM3 (150-450); RED BLOOD COUNT 4.61 MIL/MM3 (4.50-5.90); RED CELL DISTRIBUTION WIDTH 14.5 % (11.6-17.2); WHITE BLOOD COUNT 11.1 TH/MM3 (4.0-11.0)
[2017-07-19 21:58] LABS: ALBUMIN 3.7 GM/DL (3.4-5.0); AST (GOT) 16 U/L (15-37); BICARBONATE 23.6 MEQ/L (21.0-32.0); BLOOD UREA NITROGEN 16 MG/DL (7-18); CALCIUM 8.6 MG/DL (8.5-10.1); CHLORIDE 100 MEQ/L (98-107); CREATININE 0.88 MG/DL (0.60-1.30); GLOMERULAR FILTRATION RATE 90 ML/MIN (>89); GLUCOSE,RANDOM 105 MG/DL (74-106); MAGNESIUM 1.9 MG/DL (1.5-2.5); SODIUM (NA) 135 MEQ/L (136-145)
[2017-07-19 21:59] LABS: ALT (GPT) 22 U/L (12-78)
[2017-07-19 22:02] LABS: ALKALINE PHOSPHATASE 85 U/L (45-117); TOTAL BILIRUBIN ADULT 0.1 MG/DL (0.2-1.0); TOTAL PROTEIN 7.2 GM/DL (6.4-8.2); TROPONIN I LESS THAN 0.02 NG/ML (0.02-0.05)
[2017-07-19 22:04] LABS: PROTHROMBIN TIME - PATIENT 10.1 SEC (9.8-11.6)
--- NOTE | 2017-07-19 22:06 | PD ---
HPI Chief Complaint: Respiratory Symptoms Time Seen by Provider: 20:55 Travel History International Travel<30 days: No Contact w/Intl Traveler<30days: No Traveled to known affect area: No History of Present Illness HPI The patient is a 56 year old male who presents to the [facility] emergency department with a history of shortness of breath that he reports has been worsening over the last 2 days. The patient reports that he has a history of COPD. He reports that he was recently seen in the emergency department and given prescriptions for treatment, however due to the weather and rain he has not been able to get his prescriptions filled. The patient reports that he is homeless, however he has been staying under his brothers carport to keep dry over the last few days. He reports having a cough that has been productive of white phlegm. He denies having a rescue inhaler currently as he has not been able to get the prescription filled. The patient presents by ambulance services. The patient received nebulizer treatments prior to arrival. The patient reports that he has been smoking and drinking more alcohol than usual due to being angry at the weather. He reports that he drank at least 5 beers today and has smoked 2 packs of cigarettes per day. On review of systems otherwise, the patient denies having any known recent fevers, neck pain, chest pain, abdominal pain, diarrhea, urinary symptoms, or neurologic symptoms. The patient reports that 2 days ago he had 2 episodes of vomiting. He reports that he last moved his bowels earlier today. He denies having any blood in his stool or black or tarry stools. PFSH Past Medical History Narrative Medical The patient's past medical history is significant for COPD, tobacco abuse, daily alcohol use, arthritis, and depression. Arthritis: Yes Asthma: No Autoimmune Disease: No Blood Disorders: No Anxiety: No Depression: Yes Cancer: No Cardiovascular Problems: No High Cholesterol: No Chest Pain: No COPD: Yes Diabetes: No Diminished Hearing: Yes (PT STATES " [place]") Diverticulitis: Yes Endocrine: No Gastrointestinal Disorders: No Genitourinary: No Immune Disorder: No Inguinal Hernia: Yes (HX OF BILATERAL HERNIA REPAIR) Implanted Vascular Access Dvce: No Musculoskeletal: No Neurologic: No Psychiatric: Yes Reproductive: No Respiratory: Yes Sleep Apnea: No Thyroid Disease: No Tetanus Vaccination: Unknown Past Surgical History Narrative Surgical The patient's past surgical history is significant for hernia repair, history of ear surgery, history of eye surgery for strabismus. Abdominal Surgery: Yes (Hernia repair ) Ear Surgery: Yes (STATES X4) Eye Surgery: Yes (Fixed cross eye ) Tympanostomy Tube: Yes Other Surgery: Yes (RIGHT TIBIA FRACTURE) Social History Alcohol Use: Yes (DAILY) Tobacco Use: Yes (2-3 PPD) Substance Use: No Allergies-Medications (Allergen,Severity, Reaction): Coded Allergies: codeine (Unverified Adverse Reaction, Mild, NAUSEA, 07/19/17) Reported Meds & Prescriptions Reported Meds & Active Scripts Active Levaquin (Levofloxacin) 500 Mg Tablet 500 Mg PO DAILY Prednisone 20 Mg Tab 20 Mg PO BID Proair Hfa 8.5 GM Inh (Albuterol Sulfate) 90 Mcg/Act Aer 1 Puff PO QID PRN Review of Systems Except as stated in HPI: all other systems reviewed are Neg General / Constitutional: No: Fever Eyes: No: Visual changes HENT: No: Headaches, Congestion Cardiovascular: Positive: Dyspnea on exertion, No: Chest Pain or Discomfort Respiratory: Positive: Cough, Shortness of Breath Gastrointestinal: Positive: Nausea, Vomiting, No: Diarrhea, Abdominal Pain Genitourinary: No: Dysuria Musculoskeletal: No: Pain Skin: No Rash Neurologic: No: Weakness, Focal Abnormalities, Change in Mentation, Slurred Speech, Sensory Disturbance Psychiatric: Positive: Substance Abuse, No: Depression, Suicidal Ideations, Homicidal Ideation Endocrine: No: Polydipsia Hematologic/Lymphatic: No: Easy Bruising Physical Exam Narrative General: The patient is a well-developed well-nourished male in no acute distress. Head and Neck exam: Head is normocephalic atraumatic. Eyes: EOMI, pupils are equal round and reactive to light. Nose: Midline septum with pink mucous membranes Mouth: Dentition unremarkable. Moist mucus membranes. Posterior oropharynx is not erythematous. No tonsillar hypertrophy. Uvula midline. Airway patent. Neck: No palpable lymphadenopathy. No nuchal rigidity. No thyromegaly. Cardiovascular: Sinus tachycardia in the low 100 without murmurs, gallops, or rubs. No pulse deficit to the extremities on simultaneous auscultation and palpation of his radial artery. Lungs: Expiratory wheezes are audible throughout bilateral lung saunders anteriorly and posteriorly. The patient has no accessory muscle use noted. No rhonchi or crackles. No paroxysmal abdominal breathing. No conversational dyspnea. Abdomen: Soft, without tenderness to palpation in all 4 quadrants of the abdomen. No guarding, rebound, or rigidity. Normal bowel sounds are audible. No tenderness on palpation of McBurney's point. Extremities: No clubbing, cyanosis, or edema. 2+ pulses in all 4 extremities. No calf tenderness on palpation. Back: No costovertebral angle tenderness to palpation. Neurologic Exam: Grossly nonfocal. Skin Exam: No rash noted. Intact skin that is warm and dry. Data Data Last Documented VS Vital Signs Date Time Temp Pulse Resp B/P (MAP) Pulse Ox O2 Delivery O2 Flow Rate FiO2 07/19/17 22:56 29 86 Room Air 07/19/17 21:20 3.00 07/19/17 21:04 106 122/78 (93) Orders Orders Complete Blood Count With Diff (07/19/17 21:05) Comprehensive Metabolic Panel (07/19/17 21:05) B-Type Natriuretic Peptide (07/19/17 21:05) Act Partial Throm Time (Ptt) (07/19/17 21:05) Prothrombin Time / Inr (Pt) (07/19/17 21:05) Magnesium (Mg) (07/19/17 21:05) Ckmb (Isoenzyme) Profile (07/19/17 21:05) Troponin I (07/19/17 21:05) Iv Access Insert/Monitor (07/19/17 21:05) Electrocardiogram (07/19/17 21:05) Ecg Monitoring (07/19/17 21:05) Oximetry (07/19/17 21:05) Oxygen Administration (07/19/17 21:05) Chest, Single Ap (07/19/17 21:05) Sodium Chloride 0.9% Flush (Ns Flush) (07/19/17 21:15) Albuterol-Ipratropium Neb (Duoneb Neb) (07/19/17 21:15) Albuterol Hfa Inh (Proair Hfa Inh) (07/19/17 21:30) Sodium Chlorid 0.9% 500 Ml Inj (Ns 500 M (07/19/17 22:15) Levofloxacin 500 Mg Premix Inj (Levaquin (07/19/17 22:15) Labs Laboratory Tests Test 07/19/17 21:15 White Blood Count 11.1 TH/MM3 Red Blood Count 4.61 MIL/MM3 Hemoglobin 14.1 GM/DL Hematocrit 42.2 % Mean Corpuscular Volume 91.6 FL Mean Corpuscular Hemoglobin 30.6 PG Mean Corpuscular Hemoglobin Concent 33.4 % Red Cell Distribution Width 14.5 % Platelet Count 162 TH/MM3 Mean Platelet Volume 8.8 FL Neutrophils (%) (Auto) 72.2 % Lymphocytes (%) (Auto) 16.2 % Monocytes (%) (Auto) 9.8 % Eosinophils (%) (Auto) 1.3 % Basophils (%) (Auto) 0.5 % Neutrophils # (Auto) 8.0 TH/MM3 Lymphocytes # (Auto) 1.8 TH/MM3 Monocytes # (Auto) 1.1 TH/MM3 Eosinophils # (Auto) 0.1 TH/MM3 Basophils # (Auto) 0.1 TH/MM3 CBC Comment DIFF FINAL Differential Comment Prothrombin Time 10.1 SEC Prothromb Time International Ratio 1.0 RATIO Activated Partial Thromboplast Time 27.6 SEC Blood Urea Nitrogen 16 MG/DL Creatinine 0.88 MG/DL Random Glucose 105 MG/DL Total Protein 7.2 GM/DL Albumin 3.7 GM/DL Calcium Level 8.6 MG/DL Magnesium Level 1.9 MG/DL Alkaline Phosphatase 85 U/L Aspartate Amino Transf (AST/SGOT) 16 U/L Alanine Aminotransferase (ALT/SGPT) 22 U/L Total Bilirubin 0.1 MG/DL Sodium Level 135 MEQ/L Potassium Level 3.3 MEQ/L Chloride Level 100 MEQ/L Carbon Dioxide Level 23.6 MEQ/L Anion Gap 11 MEQ/L Estimat Glomerular Filtration Rate 90 ML/MIN Total Creatine Kinase 56 U/L Troponin I LESS THAN 0.02 NG/ML B-Type Natriuretic Peptide 37 PG/ML MDM Medical Decision Making Medical Screen Exam Complete: Yes Emergency Medical Condition: Yes Medical Record Reviewed: Yes Differential Diagnosis COPD exacerbation, versus pulmonary embolism, versus pneumonia, versus acute coronary syndrome, versus congestive heart failure Narrative Course During the course of the patient's emergency department visit, the patient's history, examination, and differential diagnosis were reviewed with the patient. The patient was placed on a campus monitor with oximetry and frequent blood pressure monitoring. The patient had IV access obtained and blood work sent for analysis. The patient has an EKG that was done on arrival that shows a sinus tachycardia rate of 104, QRS duration 85 ms, QTC [address] segment elevation is noted. The patient was initially provided Solu-Medrol 125 mg IV prior to arrival by ambulance services. The patient was continued on duo nebs 2 on arrival to this facility. The patient was educated on rescue inhaler use and was given 2 puffs of ProAir air while in the emergency department. The patient's laboratory studies were reviewed and remarkable for white count of 11.1, hemoglobin 14.1, platelets 162 with neutrophils 72.2, CMP is remarkable for sodium of 135, potassium 3.3, total bilirubin 0.1, cardiac enzymes within normal limits, BNP 37, PT 10.1, PTT 27.6. Radiology studies were reviewed and remarkable for a chest x-ray that shows no focal or acute intrathoracic disease, bilateral hyperaeration suggestive of COPD. Patient's electronic medical record was reviewed and the patient was started on Levaquin previously. He was given a dose of Levaquin in the emergency department. The patient on reexamination is feeling improved, wheezing has resolved. The patient is on nasal cannula O2 with an O2 saturation of 93%. The patient will be given a trial off of supplemental oxygen and reassessed to see if he requires admission. The patient's O2 saturation dropped down to 86% on room air with a good waveform. Given the patient's hypoxemia on room air, the patient will be admitted to the hospital for COPD exacerbation. The patient's results were discussed with the patient, including the plan of care. I explained that further testing and/ or monitoring is indicated based on the patient's history, examination, and/ or laboratory findings. Therefore, I recommended admission for additional evaluation. The patient expressed understanding and was agreeable with this plan. The patient was admitted to the hospital in guarded condition and sent to a bed under the care of the [facility] service. Physician Communication Physician Communication The patient's case including history, pertinent physical examination findings, and laboratory studies were discussed with Dr. Keys. It was agreed that the patient would be admitted to the [facility] service. Diagnosis Primary Impression: COPD exacerbation Additional Impression: Hypoxemia Admitting Information Admitting Physician Requests: Admit Disposition: DISCHARGE HOME Condition: Stable Belia Henley MD July 19, 2017 22:06
[2017-07-19] MEDS ORDERED: SODIUM CHLORID 0.9% 500 ML INJ 500 ML IV ONE (22:15)
[2017-07-19] MEDS ORDERED: LEVOFLOXACIN 500 MG PREMIX INJ 100 ML IV ONE (22:15)
[2017-07-19 22:56] VITALS: RESP 29; O2SAT 86
[2017-07-19] MEDS ORDERED: RESP: ALBUTEROL 2.5 MG/IPRATROPIUM 0.5 MG NEB (SCH) NEB ONE (23:00)
--- NOTE | 2017-07-19 23:22 | HHI.HP ---
HPI Service Family Medicine Primary Care Physician No Primary Care Physician Admission Diagnosis Diagnoses: International Travel<30 Days: No Contact w/Intl Traveler<30days: No Known Affected Area: No History of Present Illness 56 y/o homeless M w/hx of COPD presenting w/SOB. Has had worsening coughing and shortness of breath for the past 2 days. Cough is productive of white sputum. Having difficulty walking. Walks a little bit, then "can't breathe and has to stop." Sleeps outside. No chills, lower extremity edema, or chest pain. Does not take any medications regularly. Thinks that the recent weather changes triggered "his bronchitis." On July 14, patient received Levaquin, proair, prednisone at the [facility] for COPD exacerbation. Didn't get them filled. At the ED today, patient was found to be hypoxic on room air, satting 86% on room air. 93% on 2 L air. Received Solumedrol x1, 3 duonebs, 2 proair, Levaquin x1. Review of Systems ROS Limitations: Intoxication, Poor Historian Constitutional: COMPLAINS OF: Fatigue Cardiovascular: COMPLAINS OF: Dyspnea on Exertion, DENIES: Chest pain, Lower Extremity Edema Gastrointestinal: DENIES: Diarrhea Past Family Social History Past Medical History COPD Alcohol abuse Diverticulosis Past Surgical History Hernia repair Allergies: Coded Allergies: codeine (Unverified Adverse Reaction, Mild, NAUSEA, 07/19/17) Family History Mom: not known Dad: not known Social History Smokes a pack daily Drinks 2-3 beers every other day No marijuana or illicit/recreational drug use Homeless, living on brother's porch lately because of rain. Usually lives in a tent in [facility] in [place] Physical Exam Vital Signs Vital Signs Date Time Temp Pulse Resp B/P (MAP) Pulse Ox O2 Delivery O2 Flow Rate FiO2 07/19/17 22:56 29 86 Room Air 07/19/17 21:20 93 Nasal Cannula 3.00 07/19/17 21:13 94 Nasal Cannula 3.00 07/19/17 21:09 16 94 Nasal Cannula 3.00 07/19/17 21:04 106 16 122/78 (93) 94 Physical Exam GENERAL: This is a disheveled, sun-tanned man smelling of alcohol. SKIN: No rashes, ecchymoses or lesions. Cool and dry. HEAD: Atraumatic. Normocephalic. EYES: Pupils equal round and reactive. Extraocular motions intact. No scleral icterus. No injection or drainage. ENT: Throat without erythema, tonsillar hypertrophy or exudate. Uvula midline. Airway patent. Mucus membranes dry. NECK: Trachea midline. No JVD or lymphadenopathy. CARDIOVASCULAR: Regular rate and rhythm without murmurs, gallops, or rubs. RESPIRATORY: Increased AP diameter, diffuse, mild expiratory wheezing, no crackles, prolonged expiration. No use of accessory or intercostal resp muscles. GASTROINTESTINAL: Abdomen soft, non-tender, nondistended. No hepato-splenomegaly , or palpable masses. No guarding. MUSCULOSKELETAL: Extremities without clubbing, cyanosis, or edema. No joint tenderness, effusion, or edema noted. No calf tenderness. NEUROLOGICAL: Awake and alert. No focal deficits. Motor and sensory grossly within normal limits. Normal speech. Laboratory Laboratory Tests Test 07/19/17 21:15 White Blood Count 11.1 Red Blood Count 4.61 Hemoglobin 14.1 Hematocrit 42.2 Mean Corpuscular Volume 91.6 Mean Corpuscular Hemoglobin 30.6 Mean Corpuscular Hemoglobin Concent 33.4 Red Cell Distribution Width 14.5 Platelet Count 162 Mean Platelet Volume 8.8 Neutrophils (%) (Auto) 72.2 Lymphocytes (%) (Auto) 16.2 Monocytes (%) (Auto) 9.8 Eosinophils (%) (Auto) 1.3 Basophils (%) (Auto) 0.5 Neutrophils # (Auto) 8.0 Lymphocytes # (Auto) 1.8 Monocytes # (Auto) 1.1 Eosinophils # (Auto) 0.1 Basophils # (Auto) 0.1 CBC Comment DIFF FINAL Differential Comment Prothrombin Time 10.1 Prothromb Time International Ratio 1.0 Activated Partial Thromboplast Time 27.6 Blood Urea Nitrogen 16 Creatinine 0.88 Random Glucose 105 Total Protein 7.2 Albumin 3.7 Calcium Level 8.6 Magnesium Level 1.9 Alkaline Phosphatase 85 Aspartate Amino Transf (AST/SGOT) 16 Alanine Aminotransferase (ALT/SGPT) 22 Total Bilirubin 0.1 Sodium Level 135 Potassium Level 3.3 Chloride Level 100 Carbon Dioxide Level 23.6 Anion Gap 11 Estimat Glomerular Filtration Rate 90 Total Creatine Kinase 56 Troponin I LESS THAN 0.02 B-Type Natriuretic Peptide 37 Result Diagram: 07/19/17211407/19/172114 Imaging Last Impressions Chest X-Ray 07/19/172104 Signed Impressions: CONCLUSION: 1. No focal or acute intrathoracic disease. 2. Bilateral hyperaeration suggestive of COPD. No significant change compared to the prior study. Course Received solumedrol 125 mg IV x1 in EVAC. Received duoneb treatements and poair 2 puffs. Levofloxacin 500 mg IV and NS bolus x1. Caprini VTE Risk Assessment Caprini VTE Risk Assessment: Mod/High Risk (score >= 2) Assessment and Plan Assessment and Plan 56 y/o M w/hx of alcohol abuse admitted for COPD exacerbation. Code Status DNR Problem List: (1) COPD exacerbation ICD Codes: J44.1 - Obstructive chronic bronchitis with exacerbation Status: Acute Plan: Satting 86% on room air Tachycardia WBC count elevated w/left shift Levaquin x1, solumedrol (EVAC), duonebs in the ED Multiple exacerbations in the past year Duonebs Q4H scheduled Albuterol q2H PRN SOB Prednisone 40 mg daily for 5 days Symbicort BID for maintenance (due to hx of multiple exacerbations) Levaquin 500 mg PO daily for exacerbation/bronchitis Protonix 40 mg daily for GI protection Tessalon 200 mg TID PRN for cough Resp pulse ox, supplemental O@ to titrate 88-92%, IS Cardiac tele CXR PA and LAT (2) Hypokalemia ICD Codes: E87.6 - Hypokalemia Status: Acute Plan: 3.3 on admission Likely 2/2 malnutrition v alcoholism Check Mg level Replace as needed Check daily BMP (3) Hyponatremia ICD Codes: E87.1 - Hypo-osmolality and hyponatremia Status: Acute Plan: 2/2 dehydration v alcoholism On NS IVF Check daily BMP (4) Alcohol abuse ICD Codes: F10.10 - Alcohol abuse Status: Chronic Plan: CIWA protocol Rally pack Seizure precautions Check ETOH level (5) Tobacco abuse ICD Codes: Z72.0 - Tobacco abuse Status: Chronic Plan: Smoking cessation counseling Nicotine patches (6) FEN Plan: Fluids: maintenance fluids due to dehydration on exam Electrolytes: replace as needed, f/u potassium Nutrition: regular diet DVT prophy: lovenox q24H, SCDs Meredith Leggett MD R1 July 19, 2017 23:22
[2017-07-19] MEDS ORDERED: BISACODYL 10 MG SUPP RECTAL PRN (23:30)
[2017-07-19] MEDS ORDERED: NALOXONE HCL 0.4 MG/ML AMP IV PUSH PRN (23:30)
[2017-07-19] MEDS ORDERED: MAGNESIUM HYDROXIDE SUSP 30 ML CUP PO PRN (23:30)
[2017-07-19] MEDS ORDERED: LACTULOSE SYRUP 20 GM/30 ML CUP PO PRN (23:30)
[2017-07-19] MEDS ORDERED: SENNOSIDES 8.6 MG TAB PO PRN (23:30)
[2017-07-19 23:33] VITALS: BP 123/76; PULSE 112; RESP 22; O2SAT 93
[2017-07-20] VITALS (12 sets, daily range): BP systolic 106–142; BP diastolic 56–89; PULSE 93–118; RESP 18–23; TEMP 95.3–98.4; O2SAT 91–99
[2017-07-20] MEDS ORDERED: methylPREDNISolone SOD SUCC 125 MG/2 ML VIAL IV PUSH ONE (00:15)
[2017-07-20] MEDS ORDERED: POTASSIUM CHLORIDE 20 MEQ CONTROLLED RELEASE TAB PO ONE (00:15)
[2017-07-20] MEDS ORDERED: RESP: ALBUTEROL 2.5 MG/3 ML NEB (PRN) INH (00:15)
[2017-07-20] MEDS ORDERED: SODIUM CHLORIDE 0.9% FLUSH 10 ML FLUSH IV FLUSH PRN (00:15)
[2017-07-20] MEDS ORDERED: BENZONATATE 100 MG CAP PO PRN (00:15)
[2017-07-20] MEDS ORDERED: LORazepam 1 MG TAB PO PRN (00:15)
[2017-07-20] MEDS ORDERED: LORazepam 2 MG/ML VIAL IV PUSH PRN ×4 (00:15)
[2017-07-20] MEDS ORDERED: FLUMAZENIL 0.5 MG/5 ML VIAL IV PUSH PRN (00:15)
[2017-07-20] MEDS ORDERED: LORazepam 2 MG TAB PO PRN (00:15)
[2017-07-20] MEDS ORDERED: SODIUM CHLOR 0.9% 1000 ML INJ 1,000 ML IV SCH (00:30)
[2017-07-20] MEDS: RESP: ALBUTEROL 2.5 MG/IPRATROPIUM 0.5 MG NEB (SCH) INH ×7 (00:49→23:48)
[2017-07-20] MEDS ORDERED: cloNIDine HCL 0.1 MG TAB PO PRN (01:00)
[2017-07-20] MEDS: ENOXAPARIN SODIUM 40 MG/0.4 ML SYRINGE SQ SCH (01:02)
[2017-07-20] MEDS ORDERED: RESP: ALBUTEROL 2.5 MG/IPRATROPIUM 0.5 MG NEB (SCH) INH (04:00)
[2017-07-20 07:04] LABS: AUTOMATED NEUTROPHIL # 4.3 TH/MM3 (1.8-7.7); BASOPHIL % 0.2 % (0.0-2.0); HEMATOCRIT 39.9 % (39.0-51.0); HEMOGLOBIN 13.4 GM/DL (13.0-17.0); LYMPH % 3.3 % (9.0-44.0); LYMPHOCYTE # 0.1 TH/MM3 (1.0-4.8); MEAN CELL VOLUME 92.5 FL (80.0-100.0); MEAN CORPUSCULAR HEMOGLOBIN 31.1 PG (27.0-34.0); MEAN CORPUSCULAR HGB CONC 33.6 % (32.0-36.0); MEAN PLATELET VOLUME 9.1 FL (7.0-11.0); NEUT % 95.5 % (16.0-70.0); PLATELET COUNT 153 TH/MM3 (150-450); RED BLOOD COUNT 4.31 MIL/MM3 (4.50-5.90); RED CELL DISTRIBUTION WIDTH 14.4 % (11.6-17.2); WHITE BLOOD COUNT 4.5 TH/MM3 (4.0-11.0)
[2017-07-20 07:28] LABS: BICARBONATE 22.3 MEQ/L (21.0-32.0); CALCIUM 8.3 MG/DL (8.5-10.1); CREATININE 0.82 MG/DL (0.60-1.30); MAGNESIUM 1.9 MG/DL (1.5-2.5)
[2017-07-20] MEDS: BUDESONIDE-FORMOTEROL 160/4.5 MCG INHALER INH SCH ×2 (08:43→20:55)
[2017-07-20] MEDS: NICOTINE 21 MG/24 HR PATCH TD SCH (08:43)
[2017-07-20] MEDS: THIAMINE HCL 100 MG TAB PO SCH (08:43)
[2017-07-20] MEDS: MULTIVITAMINS/MINERALS THERAPEUTIC TAB PO SCH (08:43)
[2017-07-20] MEDS: PANTOPRAZOLE SOD 40 MG DELAYED RELEASE TAB PO SCH (08:43)
[2017-07-20] MEDS: FOLIC ACID 1 MG TAB PO SCH (08:43)
[2017-07-20] MEDS: SODIUM CHLORIDE 0.9% FLUSH 10 ML FLUSH IV FLUSH SCH ×2 (08:44→20:58)
--- NOTE | 2017-07-20 09:35 | RADRPT ---
EXAM DATE: 07/20/2017 8:59 AM EDT AGE/SEX: 56 years / Male INDICATIONS: Cough. CLINICAL DATA: This is the patient's initial encounter. Patient reports that signs and symptoms have been present for 2 days and indicates a pain score of 0/10. MEDICAL/SURGICAL HISTORY: Chronic obstructive pulmonary disease. None. COMPARISON: No prior [facility] exams available for comparison. FINDINGS: The heart and mediastinal contours are within normal limits. There are advanced COPD changes. The vis ualized osseous structures demonstrate degenerative changes within the thoracic spine but are otherwi se intact. CONCLUSION: Advanced COPD changes. Electronically signed by: Ezio Fields MD 07/20/2017 9:34 AM EDT
--- NOTE | 2017-07-20 12:04 | HHI.FPPN ---
Subjective Remarks This progress note is written in conjunction with resident H&P dated 07/19/2017. Foreign Burris is a 56yo gentleman with known COPD admitted for COPD exacerbation, after presenting to ER with increased SOB, wheeze, and sputum production. This morning, pt reports his breathing is a little less tight. He also reports that he has been told in the past he should be on oxygen medical terminologist, but is unable to do so due to his homelessness. His last drink was yesterday afternoon. ROS: Per resident H&P. Significant for: + SOB, cough. No chest pain. PMH/PSxH/SocHx/FamHx: Per resident h&P. COPD, alcohol abuse. Homeless. Tobacco abuse. He does not know his family history. Objective Vitals Vital Signs Date Time Temp Pulse Resp B/P (MAP) Pulse Ox O2 Delivery O2 Flow Rate FiO2 07/20/17 08:02 Nasal Cannula 2.00 07/20/17 07:57 97.8 93 18 135/78 (97) 95 07/20/17 07:43 95 Nasal Cannula 3.00 07/20/17 04:00 98.4 101 20 106/56 (73) 92 07/20/17 00:30 07/20/17 00:00 97.6 111 23 110/65 (80) 92 07/19/17 23:33 112 22 123/76 (92) 93 Nasal Cannula 3.00 07/19/17 22:56 29 86 Room Air 07/19/17 21:20 93 Nasal Cannula 3.00 07/19/17 21:13 94 Nasal Cannula 3.00 07/19/17 21:09 16 94 Nasal Cannula 3.00 07/19/17 21:04 106 16 122/78 (93) 94 I/O 07/19/17 07/19/17 07/19/17 07/20/17 07/20/17 07/20/17 07:00 15:00 23:00 07:00 15:00 23:00 Intake Total 840 ml 1000 ml Output Total 500 ml Balance 340 ml 1000 ml Intake Oral 240 ml IV Total 600 ml 1000 ml Output Urine Total 500 ml # Voids 1 1 # Bowel Movements 1 Result Diagram: 07/20/177 07/20/17406 Objective Remarks Significant for: In NAD, no resp distress. Talks in complete sentences. No accessory muscle use. No nasal flaring. Nasal cannula in place. Barrel chest. Lungs with decreased air movement. Distant heart sounds. 2+ DP pulses. No calf tenderness. A/P Assessment and Plan 56 y/o M w/hx of alcohol abuse admitted for COPD exacerbation. Attending Attestation Patient seen, examined, and discussed with resident team. The patient has been seen and examined. The chart and all resident notes have been reviewed. I agree that inpatient care is appropriate and that a two midnight stay is expected for the reasons documented in the resident history and physical. I have discussed this with the resident and certify the resident s order for inpatient admission. Problem List: (1) COPD exacerbation ICD Codes: J44.1 - Obstructive chronic bronchitis with exacerbation Status: Acute Plan: Satting 86% on room air at admission. Requiring oxygen supplementation and will wean as tolerated. COPD is poorly controlled, as pt with multiple ER visits/admissions and reports that he has been told he needed oxygen medical terminologist. Pt will likely be difficult to wean from oxygen. Levaquin x1, solumedrol (EVAC), duonebs in the ED Duonebs Q4H scheduled Albuterol q2H PRN SOB Prednisone 40 mg daily for 5 days Symbicort BID for maintenance (due to hx of multiple exacerbations) Levaquin 500 mg PO daily for exacerbation/bronchitis. EKG reviewed and no QT prolongation noted. Protonix 40 mg daily for GI protection Tessalon 200 mg TID PRN for cough Resp pulse ox, supplemental O@ to titrate 88-92%, IS CXR PA and LAT demonstrates chronic advanced COPD changes. (2) Alcohol abuse ICD Codes: F10.10 - Alcohol abuse Status: Chronic Plan: CIWA protocol. No sign of withdrawal at this time. Rally pack Seizure precautions Pt with intoxication at arrival, based on ETOH level. Counselled on alcohol cessation. (3) Hypokalemia ICD Codes: E87.6 - Hypokalemia Status: Resolved Plan: 3.3 on admission Likely 2/2 malnutrition v alcoholism Mg level WNL Replace as needed Check daily BMP (4) Hyponatremia ICD Codes: E87.1 - Hypo-osmolality and hyponatremia Status: Resolved Plan: 2/2 dehydration v alcoholism On NS IVF Check daily BMP (5) Tobacco abuse ICD Codes: Z72.0 - Tobacco abuse Status: Chronic Plan: Smoking cessation counseling Nicotine patches (6) Homeless ICD Codes: Z59.0 - Homelessness Status: Chronic Plan: Case management consult. Pt would likely benefit from oxygen supplementation, which will be difficult, given his homelessness. Francisca Baker MD July 20, 2017 12:04
--- NOTE | 2017-07-20 14:07 | EKG ---
Date Performed: 07/19/2017 Time Performed: 21:06:56 PTAGE: 56 years EKG: SINUS TACHYCARDIA ABNORMAL RHYTHM ECG PREVIOUS TRACING : 07/05/2017 19.56 DOCTOR: Dada Antoine Interpretating Date/Time 07/20/2017 14:04:54
[2017-07-20] MEDS: predniSONE 20 MG TAB PO SCH (20:58)
[2017-07-20] MEDS ORDERED: LEVOFLOXACIN 750 MG TAB PO SCH ×3 (22:00)
[2017-07-21] VITALS: BP 163/90; PULSE 120; PULSE 125; RESP 22; TEMP 99; O2SAT 91
[2017-07-21] MEDS: ENOXAPARIN SODIUM 40 MG/0.4 ML SYRINGE SQ SCH (00:15)
[2017-07-21] MEDS: RESP: ALBUTEROL 2.5 MG/IPRATROPIUM 0.5 MG NEB (SCH) INH ×2 (02:04→07:52)
[2017-07-21 04:00] VITALS: BP 117/75; PULSE 100; PULSE 107; RESP 20; TEMP 99.1; O2SAT 92
[2017-07-21 07:32] VITALS: PULSE 92
[2017-07-21 07:53] VITALS: O2SAT 92
[2017-07-21 08:00] VITALS: BP 147/81; PULSE 88; RESP 20; TEMP 96.1; O2SAT 93
--- NOTE | 2017-07-21 08:56 | HHI.FPPN ---
Subjective Remarks Patient reports breathing better, coughing less. He reports that he is ready to go home. Discussed discharge plan with patient. Objective Vitals Vital Signs Date Time Temp Pulse Resp B/P (MAP) Pulse Ox O2 Delivery O2 Flow Rate FiO2 07/21/17 07:53 92 21 07/21/17 07:32 92 07/21/17 04:00 99.1 107 20 117/75 (89) 92 07/21/17 04:00 100 07/21/17 00:00 120 07/21/17 00:00 99.0 125 22 163/90 (114) 91 07/20/17 20:52 97.6 118 18 136/89 (105) 91 07/20/17 20:40 2.00 07/20/17 19:56 99 07/20/17 19:24 93 Nasal Cannula 2.00 07/20/17 15:44 96.5 115 18 131/77 (95) 92 07/20/17 15:13 112 07/20/17 12:45 113 07/20/17 12:15 95.3 110 18 142/70 (94) 93 I/O 07/20/17 07/20/17 07/20/17 07/21/17 07/21/17 07/21/17 07:00 15:00 23:00 07:00 15:00 23:00 Intake Total 840 ml 1000 ml Output Total 500 ml 600 ml Balance 340 ml 400 ml Intake Oral 240 ml IV Total 600 ml 1000 ml Output Urine Total 500 ml 600 ml # Voids 1 2 3 3 # Bowel Movements 2 Result Diagram: 07/20/17 0407 07/20/17 0407 Imaging Last Impressions Chest X-Ray 07/20/17 0600 Signed Impressions: CONCLUSION: Advanced COPD changes. Objective Remarks GENERAL: In NAD, no resp distress. Talks in complete sentences. Satting well on room air. SKIN: No rashes, ecchymoses or lesions. Cool and dry. HEAD: Atraumatic. Normocephalic. EYES: Pupils equal round and reactive. Extraocular motions intact. No scleral icterus. No injection or drainage. ENT: Throat without erythema, tonsillar hypertrophy or exudate. Uvula midline. Airway patent. NECK: Trachea midline. No JVD or lymphadenopathy. CARDIOVASCULAR: Regular rate and rhythm without murmurs, gallops, or rubs. RESPIRATORY: Barrel chest, diffuse expiratory wheezing, but improved air movement BL with no crackles, prolonged expiration. No use of accessory or intercostal resp muscles. GASTROINTESTINAL: Abdomen soft, non-tender, nondistended. No rebounding or guarding. MUSCULOSKELETAL: Extremities without clubbing, cyanosis, or edema. No joint tenderness, effusion, or edema noted. No calf tenderness. NEUROLOGICAL: Awake and alert. No focal deficits. Motor and sensory grossly within normal limits. Normal speech. A/P Assessment and Plan 56 y/o M w/hx of alcohol abuse admitted for COPD exacerbation. Discharge Planning Discharge today with antibiotic and steroid. Problem List: (1) COPD exacerbation ICD Codes: J44.1 - Obstructive chronic bronchitis with exacerbation Status: Acute Plan: Patient satting well on room air today. Duonebs Q4H scheduled Albuterol q2H PRN SOB Prednisone 40 mg daily for 5 days. Discharge patient with 3 more days of prednisone Symbicort BID for maintenance (due to hx of multiple exacerbations) Levaquin 750 mg PO daily for COPD exacerbation. EKG reviewed and no QT prolongation noted. Discharge patient with 3 more days of Levaquin Protonix 40 mg daily for GI protection Tessalon 200 mg TID PRN for cough Resp pulse ox, supplemental O2 to titrate 88-92%, IS CXR PA and LAT demonstrates chronic advanced COPD changes. (2) Alcohol abuse ICD Codes: F10.10 - Alcohol abuse Status: Chronic Plan: CIWA protocol. No sign of withdrawal at this time. Rally pack Seizure precautions Pt with intoxication at arrival, based on ETOH level. Counselled on alcohol cessation. (3) Tobacco abuse ICD Codes: Z72.0 - Tobacco abuse Status: Chronic Plan: Smoking cessation counseling Nicotine patches (4) Homeless ICD Codes: Z59.0 - Homelessness Status: Chronic Plan: Case management consult. Pt would likely benefit from oxygen supplementation, which will be difficult, given his homelessness. Discussed with patient who reported that it would be inconvenient to have oxygen tank at this time. Patric Molina MD R2 July 21, 2017 08:56
[2017-07-21] MEDS ORDERED: PRED20 PO (09:01)
[2017-07-21] MEDS ORDERED: LEVA750T9 PO (09:01)
--- NOTE | 2017-07-21 09:02 | HHI.DCPOC ---
Discharge Care Plan Diagnosis: (1) COPD exacerbation Goals to Promote Your Health * To prevent worsening of your condition and complications, please take medications as prescribed. * To maintain your health at the optimal level, please follow up with a doctor. Directions to Meet Your Goals Take your medications as prescribed Follow your dietary instruction Follow activity as directed Keep your appointments as scheduled Take your immunizations and boosters as scheduled If your symptoms worsen call your PCP, if no PCP go to Urgent Care Center or Emergency Room Smoking is Dangerous to Your Health. Avoid second hand smoke Call the 24-hour hour crisis hotline for domestic abuse at Patric Molina MD R2 July 21, 2017 09:02
[2017-07-21] MEDS: PANTOPRAZOLE SOD 40 MG DELAYED RELEASE TAB PO SCH (09:19)
[2017-07-21] MEDS: predniSONE 20 MG TAB PO SCH (09:19)
[2017-07-21] MEDS: FOLIC ACID 1 MG TAB PO SCH (09:19)
[2017-07-21] MEDS: BUDESONIDE-FORMOTEROL 160/4.5 MCG INHALER INH SCH (09:19)
[2017-07-21] MEDS: THIAMINE HCL 100 MG TAB PO SCH (09:19)
[2017-07-21] MEDS: MULTIVITAMINS/MINERALS THERAPEUTIC TAB PO SCH (09:19)
[2017-07-21] MEDS: NICOTINE 21 MG/24 HR PATCH TD SCH (09:20)
[2017-07-21] MEDS: SODIUM CHLORIDE 0.9% FLUSH 10 ML FLUSH IV FLUSH SCH (09:20)
[2017-07-21] MEDS ORDERED: INFLUENZA VIRUS VACCINE (QUADRIVALENT) 0.5 ML SYR IM ONE (10:00)
[2017-07-21] MEDS ORDERED: PNEUMOCOCCAL POLYVALENT INJ 25 MCG/0.5 ML SYR IM ONE (10:00)
== END 2017-07-21 10:58 | disposition home or self-care (01) | DRG 191 ==
LOC: NEPE 20:42 → NEDA 23:20 → UNDOADMIN 23:21 → NEDA 23:24 → INTOOBSV 23:24 → UNDOADMOB 23:24 → NEDA 07-20 00:15 → NEPHCDU 07-20 00:15
PROVIDERS: ADMIT Family Medicine; ATTEND Family Medicine
DX: J44.1 Chronic obstructive pulmonary disease with (acute) exacerbation (principal); E46 Unspecified protein-calorie malnutrition; E87.1 Hypo-osmolality and hyponatremia; E87.6 Hypokalemia; D72.829 Elevated white blood cell count, unspecified; F17.210 Nicotine dependence, cigarettes, uncomplicated; R26.2 Difficulty in walking, not elsewhere classified; Z59.0 Homelessness; Z66 Do not resuscitate; R00.0 Tachycardia, unspecified; E86.0 Dehydration; F10.129 Alcohol abuse with intoxication, unspecified
CPT/HCPCS: 71045; 71046; 80048; 80053; 80307; 82550; 82948; 83735; 83880; 84484; 85025; 85610; 85730; 87804; 93005; 94150; 94640; 94664; 96365; J1650; J1956; J2930; J7030; J7040; J7512

== ENCOUNTER 2017-08-16 09:32 | Emergency (ER) | payer SELFPAY ==
[~2017-08-16] VITALS: Ht 180.3 cm; Wt 70.0 kg
[~2017-08-16 09:32] MED LIST changes: -LEVA500T33 PO; +LEVA750T9 PO
[2017-08-16 09:38] VITALS: BP 142/64; PULSE 87; RESP 16; TEMP 98; O2SAT 100
[2017-08-16] MEDS ORDERED: SODIUM CHLOR 0.9% 1000 ML INJ 1,000 ML IV SCH (11:14)
[2017-08-16] MEDS ORDERED: SODIUM CHLORIDE 0.9% FLUSH 10 ML FLUSH IV FLUSH PRN (11:15)
--- NOTE | 2017-08-16 11:17 | PD ---
HPI Chief Complaint: Abdominal Pain Time Seen by Provider: 11:08 Travel History International Travel<30 days: No Contact w/Intl Traveler<30days: No Traveled to known affect area: No History of Present Illness HPI 56-year-old male with PMH of COPD, diverticulitis, homelessness presents the ED via EMS for evaluation of 1 week history of intermittent left lower quadrant abdominal pain, loose stools. Gradual onset. Maximally 09/30. Currently 04/02. Patient endorses one episode of bloody stool about a week ago. He denies fever, chills, nausea, vomiting, chest pain, shortness of breath. He states the symptoms are similar to previous episode of diverticulitis. He thinks that they were onset after eating a sandwich with tomatoes on it. No treatment attempted before arrival. PFSH Past Medical History Arthritis: Yes Asthma: No Autoimmune Disease: No Blood Disorders: No Anxiety: No Depression: Yes Cancer: No Cardiovascular Problems: No High Cholesterol: No Chest Pain: No COPD: Yes Diabetes: No Diminished Hearing: Yes (PT STATES " [place]") Diverticulitis: Yes Endocrine: No Gastrointestinal Disorders: No Genitourinary: No Immune Disorder: No Inguinal Hernia: Yes (HX OF BILATERAL HERNIA REPAIR) Implanted Vascular Access Dvce: No Musculoskeletal: No Neurologic: No Psychiatric: Yes Reproductive: No Respiratory: Yes Sleep Apnea: No Thyroid Disease: No Past Surgical History Abdominal Surgery: Yes (Hernia repair ) Ear Surgery: Yes (STATES X4) Eye Surgery: Yes (Fixed cross eye ) Tympanostomy Tube: Yes Other Surgery: Yes (RIGHT TIBIA FRACTURE) Social History Alcohol Use: Yes (DAILY) Tobacco Use: Yes (2-3 PPD) Substance Use: No Allergies-Medications (Allergen,Severity, Reaction): Coded Allergies: codeine (Unverified Adverse Reaction, Mild, NAUSEA, 07/19/17) Reported Meds & Prescriptions Reported Meds & Active Scripts Active Flagyl (Metronidazole) 500 Mg Tab 500 Mg PO TID 7 Days Cipro (Ciprofloxacin HCl) 500 Mg Tab 500 Mg PO BID 7 Days Prednisone 20 Mg Tab 40 Mg PO DAILY Levaquin (Levofloxacin) 750 Mg Tablet 750 Mg PO Q24H Proair Hfa 8.5 GM Inh (Albuterol Sulfate) 90 Mcg/Act Aer 1 Puff PO QID PRN Review of Systems Except as stated in HPI: all other systems reviewed are Neg Physical Exam Narrative GENERAL: Well-nourished, well-developed thin white male no acute distress. SKIN: Focused skin assessment warm/dry. Deeply tanned. HEAD: Normocephalic. EYES: No scleral icterus. No injection or drainage. NECK: Supple, trachea midline. No JVD or lymphadenopathy. CARDIOVASCULAR: Regular rate and rhythm without murmurs, gallops, or rubs. RESPIRATORY: Breath sounds clear and equal bilaterally. No accessory muscle use. GASTROINTESTINAL: Abdomen soft, nondistended. Palpable hepatosplenomegaly. Tender to palpation in suprapubic region and left lower quadrant. Active bowel sounds. MUSCULOSKELETAL: No cyanosis, or edema. BACK: Nontender without obvious deformity. No CVA tenderness. Data Data Last Documented VS Vital Signs Date Time Temp Pulse Resp B/P (MAP) Pulse Ox O2 Delivery O2 Flow Rate FiO2 08/16/17 11:20 97 Room Air 08/16/17 09:38 98.0 87 16 142/64 (90) Orders Orders Complete Blood Count With Diff (08/16/17 11:14) Comprehensive Metabolic Panel (08/16/17 11:14) Lipase (08/16/17 11:14) Prothrombin Time / Inr (Pt) (08/16/17 11:14) Act Partial Throm Time (Ptt) (08/16/17 11:14) Iv Access Insert/Monitor (08/16/17 11:14) Ecg Monitoring (08/16/17 11:14) Oximetry (08/16/17 11:14) Sodium Chlor 0.9% 1000 Ml Inj (Ns 1000 M (08/16/17 11:14) Sodium Chloride 0.9% Flush (Ns Flush) (08/16/17 11:15) Urinalysis - C+S If Indicated (08/16/17 12:24) Ct Abd/Pel W Iv Contrast(Rout) (08/16/17 12:24) Iohexol 350 Inj (Omnipaque 350 Inj) (08/16/17 14:09) Metronidazole (Flagyl) (08/16/17 15:15) Ciprofloxacin (Cipro) (08/16/17 15:15) Mandatory Outpatient Referral (08/16/17 15:07) Ed Discharge Order (08/16/17 15:08) Tramadol (Ultram) (08/16/17 15:30) Labs Laboratory Tests Test 08/16/17 00:00 08/16/17 11:50 Urine Color YELLOW Urine Turbidity HAZY Urine pH 7.0 Urine Specific [place] 1.025 Urine Protein NEG mg/dL Urine Glucose (UA) 50 mg/dL Urine Ketones NEG mg/dL Urine Occult Blood NEG Urine Nitrite NEG Urine Bilirubin NEG Urine Urobilinogen 2.0 mg/dL Urine Leukocyte Esterase NEG Urine RBC LESS THAN 1 /hpf Urine WBC 2 /hpf Urine Amorphous Sediment FEW Urine Mucus FEW /lpf Microscopic Urinalysis Comment CULT NOT INDICATED White Blood Count 8.3 TH/MM3 Red Blood Count 5.10 MIL/MM3 Hemoglobin 16.0 GM/DL Hematocrit 47.5 % Mean Corpuscular Volume 93.2 FL Mean Corpuscular Hemoglobin 31.3 PG Mean Corpuscular Hemoglobin Concent 33.6 % Red Cell Distribution Width 14.6 % Platelet Count 191 TH/MM3 Mean Platelet Volume 8.6 FL Neutrophils (%) (Auto) 66.6 % Lymphocytes (%) (Auto) 22.7 % Monocytes (%) (Auto) 8.4 % Eosinophils (%) (Auto) 1.3 % Basophils (%) (Auto) 1.0 % Neutrophils # (Auto) 5.5 TH/MM3 Lymphocytes # (Auto) 1.9 TH/MM3 Monocytes # (Auto) 0.7 TH/MM3 Eosinophils # (Auto) 0.1 TH/MM3 Basophils # (Auto) 0.1 TH/MM3 CBC Comment DIFF FINAL Differential Comment Prothrombin Time 10.3 SEC Prothromb Time International Ratio 1.0 RATIO Activated Partial Thromboplast Time 29.2 SEC Blood Urea Nitrogen 18 MG/DL Creatinine 0.89 MG/DL Random Glucose 119 MG/DL Total Protein 7.5 GM/DL Albumin 3.8 GM/DL Calcium Level 9.4 MG/DL Alkaline Phosphatase 107 U/L Aspartate Amino Transf (AST/SGOT) 21 U/L Alanine Aminotransferase (ALT/SGPT) 45 U/L Total Bilirubin 0.4 MG/DL Sodium Level 140 MEQ/L Potassium Level 4.5 MEQ/L Chloride Level 106 MEQ/L Carbon Dioxide Level 28.0 MEQ/L Anion Gap 6 MEQ/L Estimat Glomerular Filtration Rate 88 ML/MIN Lipase 103 U/L [facility] Medical Decision Making Medical Screen Exam Complete: Yes Emergency Medical Condition: Yes Differential Diagnosis Gastritis versus diverticulitis versus constipation versus bowel obstruction versus other Narrative Course 56-year-old male with PMH of COPD, diverticulitis, homelessness presents the ED via EMS for evaluation of 1 week history of intermittent left lower quadrant abdominal pain, loose stools. Vitals reviewed. On physical exam the patient has tenderness to deep palpation in the suprapubic region. Otherwise unremarkable. IV was established. Patient administered 1 L normal saline and 25 mg tramadol by mouth. CBC, CMP, coags, UA unremarkable. Lipase within normal limits. CT reveals mural thickening of the sigmoid with a well-circumscribed 2 cm low-density area within the wall of the sigmoid concerning for mural abscess. Not amenable to percutaneous drainage, may respond to antibiotic therapy, otherwise unremarkable. Dr. Ontiveros I discussed the case. This patient is very well- appearing. Will prescribe Cipro Flagyl, first dose administered in the ED. Mandatory outpatient follow-up place with GI. We discussed the plan with the patient, reasons to return to the ED. He indicated understanding the instructions. He is agreeable to care plan. Diagnosis Primary Impression: Diverticulitis Referrals: Resource Conservationist Additional Instructions: Rest, hydrate. Begin antibiotics today and take them as prescribed until every dose is gone. Return to the ED for worsening symptoms. A mandatory outpatient consult has been placed on your behalf with the photo editor. If you do not hear from the photo editor office in 1 week please contact the patient assistance program at [facility]. Follow-up with the [facility] to establish primary care. Return to the ED for any urgent or emergent medical condition. Med/Other Pt SpecificInfo: Prescription(s) given Scripts Metronidazole (Flagyl) 500 Mg Tab 500 MG PO TID for Infection for 7 Days, TAB 0 Refills Prov: Ezio Ontiveros MD 08/16/17 Ciprofloxacin (Cipro) 500 Mg Tab 500 MG PO BID for Infection for 7 Days, #14 TAB 0 Refills Prov: Ezio Ontiveros MD 08/16/17 Disposition: 01 DISCHARGE HOME Condition: Stable Jael Seaman Aug 16, 2017 11:17
[2017-08-16 11:20] VITALS: O2SAT 97
[2017-08-16 12:16] LABS: AUTOMATED NEUTROPHIL # 5.5 TH/MM3 (1.8-7.7); BASOPHIL # 0.1 TH/MM3 (0-0.2); EOSINOPHIL # 0.1 TH/MM3 (0-0.4); EOSINOPHIL % 1.3 % (0.0-4.0); HEMATOCRIT 47.5 % (39.0-51.0); LYMPH % 22.7 % (9.0-44.0); LYMPHOCYTE # 1.9 TH/MM3 (1.0-4.8); MEAN CELL VOLUME 93.2 FL (80.0-100.0); MEAN CORPUSCULAR HEMOGLOBIN 31.3 PG (27.0-34.0); MEAN CORPUSCULAR HGB CONC 33.6 % (32.0-36.0); MEAN PLATELET VOLUME 8.6 FL (7.0-11.0); MONO % 8.4 % (0.0-8.0); MONOCYTE # 0.7 TH/MM3 (0-0.9); NEUT % 66.6 % (16.0-70.0); PLATELET COUNT 191 TH/MM3 (150-450); RED CELL DISTRIBUTION WIDTH 14.6 % (11.6-17.2); WHITE BLOOD COUNT 8.3 TH/MM3 (4.0-11.0)
[2017-08-16 12:25] LABS: PROTHROMBIN TIME - PATIENT 10.3 SEC (9.8-11.6)
[2017-08-16 12:30] LABS: ALBUMIN 3.8 GM/DL (3.4-5.0); BLOOD UREA NITROGEN 18 MG/DL (7-18); CALCIUM 9.4 MG/DL (8.5-10.1); CHLORIDE 106 MEQ/L (98-107); CREATININE 0.89 MG/DL (0.60-1.30); GLOMERULAR FILTRATION RATE 88 ML/MIN (>89); GLUCOSE,RANDOM 119 MG/DL (74-106); SODIUM (NA) 140 MEQ/L (136-145)
[2017-08-16 12:31] LABS: AST (GOT) 21 U/L (15-37)
[2017-08-16 12:34] LABS: ALKALINE PHOSPHATASE 107 U/L (45-117); ALT (GPT) 45 U/L (12-78); TOTAL BILIRUBIN ADULT 0.4 MG/DL (0.2-1.0); TOTAL PROTEIN 7.5 GM/DL (6.4-8.2)
[2017-08-16 12:51] LABS: AMORPHOUS SEDIMENT, URINE FEW; BILIRUBIN, URINE NEG (NEG); BLOOD, URINE NEG (NEG); GLUCOSE,URINE 50 mg/dL (NEG); KETONE, URINE NEG (NEG); MUCUS URINE FEW /lpf (OCC); NITRITE,URINE NEG (NEG); URINE COLOR YELLOW (YELLW/STRAW); URINE LEUKOCYTE ESTERASE NEG (NEG)
[2017-08-16] MEDS ORDERED: IOHEXOL 350 MG/ML 10 ML VIAL (for RAD DIAG) IVCONTRAST ONE (14:09)
--- NOTE | 2017-08-16 14:47 | RADRPT ---
EXAM DATE: 08/16/2017 2:13 PM EDT AGE/SEX: 56 years / Male INDICATIONS: Left lower quadrant abdominal pain. CLINICAL DATA: This is the patient's initial encounter. Patient reports that signs and symptoms have been present for 1 day and indicates a pain score of 5/10. MEDICAL/SURGICAL HISTORY: Chronic obstructive pulmonary disease. Diverticulitis. Inguinal clint ia repair. ORAL CONTRAST: No oral contrast ingested. RADIATION DOSE: 6.88 CTDI (mGy) COMPARISON: [facility] – [place], CT ABDOMEN & PELVIS W CONTRAST, 03/13/2011. . TECHNIQUE: Multiple contiguous axial images were obtained through the abdomen and pelvis following b olus infusion of 72 ml Omnipaque 350 (iohexol) nonionic water-soluble contrast as a single exam dos e. No oral contrast ingested. Using automated exposure control and adjustment of the mA and/or kV ac cording to patient size, radiation dose was kept as low as reasonably achievable to obtain optimal di agnostic quality images. DICOM format image data is available electronically for review and comparis on. FINDINGS: Lower Lungs: The visualized lower lungs are clear. Small hiatal hernia Liver: The liver has a homogeneous density without space-occupying lesion. There is no dilation of th e biliary tree. Spleen: Homogeneous density without enlargement. Pancreas: Unremarkable without mass or calcification. Kidneys: Normal in size and shape. No evidence of mass or hydronephrosis. Adrenal Glands: Unremarkable. Aorta: The aorta and proximal iliac vessels are grossly unremarkable without aneurysmal dilation. Bowel/Mesentery: There is mural thickening within the sigmoid portion of the colon probably associat ed with some regional diverticula. In addition, a well-circumscribed, 2 cm area of low density within the wall of the sigmoid is concerning for a mural abscess/infected diverticula. No regional free air . Abdominal Wall: Intact. Retroperitoneum: No evidence of adenopathy in the retrocrural, para-aortic, or deep pelvic regions. Bladder: Contours are smooth. Reproductive Organs: Prostate is prominent at 4.2 cm. Otherwise intact Inguinal: The inguinal region is unremarkable without evidence of adenopathy. Bony Structures: Unremarkable. Post Contrast: No abnormal areas of enhancement seen. CONCLUSION: 1. Mural thickening in the sigmoid characteristic of chronic diverticular disease. 2. I do not see findings of active diverticulitis but there is a well-circumscribed, 2 cm low densit y area within the wall of the sigmoid concerning for a mural abscess. This would not be amenable to p ercutaneous drainage and may respond to antibiotic therapy. 3. Prominent prostate. 4. Small hiatal hernia. Electronically signed by: Sheng Vargas MD 08/16/2017 2:45 PM EDT
[2017-08-16] MEDS ORDERED: CIPR-9 PO (15:07)
[2017-08-16] MEDS ORDERED: METR-1 PO (15:07)
--- NOTE | 2017-08-16 15:07 | PD ---
Data Data Last Documented VS Vital Signs Date Time Temp Pulse Resp B/P (MAP) Pulse Ox O2 Delivery O2 Flow Rate FiO2 08/16/17 11:20 97 Room Air 08/16/17 09:38 98.0 87 16 142/64 (90) Orders Orders Complete Blood Count With Diff (08/16/17 11:14) Comprehensive Metabolic Panel (08/16/17 11:14) Lipase (08/16/17 11:14) Prothrombin Time / Inr (Pt) (08/16/17 11:14) Act Partial Throm Time (Ptt) (08/16/17 11:14) Iv Access Insert/Monitor (08/16/17 11:14) Ecg Monitoring (08/16/17 11:14) Oximetry (08/16/17 11:14) Sodium Chlor 0.9% 1000 Ml Inj (Ns 1000 M (08/16/17 11:14) Sodium Chloride 0.9% Flush (Ns Flush) (08/16/17 11:15) Urinalysis - C+S If Indicated (08/16/17 12:24) Ct Abd/Pel W Iv Contrast(Rout) (08/16/17 12:24) Iohexol 350 Inj (Omnipaque 350 Inj) (08/16/17 14:09) Labs Laboratory Tests Test 08/16/17 00:00 08/16/17 11:50 Urine Color YELLOW Urine Turbidity HAZY Urine pH 7.0 Urine Specific [place] 1.025 Urine Protein NEG mg/dL Urine Glucose (UA) 50 mg/dL Urine Ketones NEG mg/dL Urine Occult Blood NEG Urine Nitrite NEG Urine Bilirubin NEG Urine Urobilinogen 2.0 mg/dL Urine Leukocyte Esterase NEG Urine RBC LESS THAN 1 /hpf Urine WBC 2 /hpf Urine Amorphous Sediment FEW Urine Mucus FEW /lpf Microscopic Urinalysis Comment CULT NOT INDICATED White Blood Count 8.3 TH/MM3 Red Blood Count 5.10 MIL/MM3 Hemoglobin 16.0 GM/DL Hematocrit 47.5 % Mean Corpuscular Volume 93.2 FL Mean Corpuscular Hemoglobin 31.3 PG Mean Corpuscular Hemoglobin Concent 33.6 % Red Cell Distribution Width 14.6 % Platelet Count 191 TH/MM3 Mean Platelet Volume 8.6 FL Neutrophils (%) (Auto) 66.6 % Lymphocytes (%) (Auto) 22.7 % Monocytes (%) (Auto) 8.4 % Eosinophils (%) (Auto) 1.3 % Basophils (%) (Auto) 1.0 % Neutrophils # (Auto) 5.5 TH/MM3 Lymphocytes # (Auto) 1.9 TH/MM3 Monocytes # (Auto) 0.7 TH/MM3 Eosinophils # (Auto) 0.1 TH/MM3 Basophils # (Auto) 0.1 TH/MM3 CBC Comment DIFF FINAL Differential Comment Prothrombin Time 10.3 SEC Prothromb Time International Ratio 1.0 RATIO Activated Partial Thromboplast Time 29.2 SEC Blood Urea Nitrogen 18 MG/DL Creatinine 0.89 MG/DL Random Glucose 119 MG/DL Total Protein 7.5 GM/DL Albumin 3.8 GM/DL Calcium Level 9.4 MG/DL Alkaline Phosphatase 107 U/L Aspartate Amino Transf (AST/SGOT) 21 U/L Alanine Aminotransferase (ALT/SGPT) 45 U/L Total Bilirubin 0.4 MG/DL Sodium Level 140 MEQ/L Potassium Level 4.5 MEQ/L Chloride Level 106 MEQ/L Carbon Dioxide Level 28.0 MEQ/L Anion Gap 6 MEQ/L Estimat Glomerular Filtration Rate 88 ML/MIN Lipase 103 U/L MDM Medical Record Reviewed: Yes Supervised Visit with ZOYA: Yes Narrative Course I, Dr. Ontiveros, have reviewed the advance practice practitioner's documentation and am in agreement, met with the patient face to face, made the diagnosis, and the medical decision making was done by me. *My assessment and Findings: Patient seen and evaluated by me at the bedside. He has a potential/very mild distal sigmoid mural abscess. Patient has a normal white blood cell count. He has no fever. He states he feels okay to go home and will be able to fill antibiotic prescription. This scenario we will provide Cipro Flagyl prescription and strict return precautions. First dose given here. Mandatory outpatient follow-up with GI to be provided. The abdomen is soft without peritoneal sign. There is some tenderness as would be expected. Diagnosis Primary Impression: Diverticulitis Referrals: Manufacturing Engineer 2 days Additional Instruction: Rest, hydrate. Begin antibiotics today and take them as prescribed until every dose is gone. Return to the ED for worsening symptoms. Follow-up with the [facility] to establish primary care. Return to the ED for any urgent or emergent medical condition. Med/Other Pt SpecificInfo: Prescription(s) given Disposition: 01 DISCHARGE HOME Condition: Stable Ezio Ontiveros MD Aug 16, 2017 15:07
[2017-08-16] MEDS ORDERED: metroNIDAZOLE 500 MG TAB PO ONE (15:15)
[2017-08-16] MEDS ORDERED: CIPROFLOXACIN 500 MG TAB PO ONE (15:15)
[2017-08-16] MEDS ORDERED: traMADol HCL 50 MG TAB PO ONE (15:30)
== END 2017-08-16 16:00 | disposition home or self-care (01) ==
LOC: NEPD 09:32
DX: K57.92 Diverticulitis of intestine, part unspecified, without perforation or abscess without bleeding (principal); R10.31 Right lower quadrant pain; J44.9 Chronic obstructive pulmonary disease, unspecified; K44.9 Diaphragmatic hernia without obstruction or gangrene; M19.90 Unspecified osteoarthritis, unspecified site; F32.9 Major depressive disorder, single episode, unspecified; F17.210 Nicotine dependence, cigarettes, uncomplicated; Z59.0 Homelessness; Z88.5 Allergy status to narcotic agent; Z79.899 Other long term (current) drug therapy
CPT/HCPCS: 74177; 80053; 81001; 83690; 85025; 85610; 85730; 96360; 99284; J7030; Q9967